=== PATIENT | male | born 1935 | race Caucasian/White ===

== ENCOUNTER 2017-02-05 09:27 | Emergency (ER) | payer OTHER ==
[~2017-02-05] VITALS: Ht 175.3 cm; Wt 74.9 kg
[2017-02-05 09:29] VITALS: TEMP 36.7; Ht 175.3 cm; Wt 74.9 kg
[2017-02-05] MEDS ORDERED: TRAMADOL HCL 50 MG TAB PO STA (09:53)
[2017-02-05] MEDS ORDERED: ACETAMINOPHEN 325 MG TAB PO STA (09:53)
[2017-02-05] MEDS ORDERED: IBUPROFEN 200 MG TAB PO STA (09:53)
--- NOTE | 2017-02-05 09:54 | EMERGENCY ROOM VISIT NOTE ---
History Report prepared by Jessica: Jennifer Fontaine Under the Supervision of: Dr. Duong Mcqueen M.D. First contact with patient: 09:35 Chief Complaint: SWELLING TO EXTREMITY Stated Complaint: SWELLING TO LEFT KNEE History of Present Illness The patient is an 81 year old white male with a past medical history of heart disease, atrial fibrillation, hypertension, Bhatti's cyst, and arthritis who presents to the ED with a cc of persistent left knee swelling beginning a week and a half ago. Positive left knee pain. Negative fever. He currently rates his discomfort as a 5/10 in severity. The patient states that last Tuesday he developed left knee pain and increased swelling. He states that last night he had difficulty sleeping, noting he had no relief of his symptoms with Tylenol or ice. The patient states that he is visiting from [place] for the next. Source of History: patient Onset: a week and a yogesh ago Position: knee (left) Symptom Intensity: 5/10 Quality: other (swelling) Timing: other (persistent) Associated Symptoms: No fevers Review of Systems See HPI for pertinent positives and negatives. A total of ten systems were reviewed and were otherwise negative. Past Medical & Surgical Medical Problems: (1) Arthritis (2) Atrial fibrillation (3) Heart disease (4) Hypertension Family History Hypertension Social History Smoking Status: Never Smoker Smokeless Tobacco Use: No Alcohol Use: none Marital Status: Housing Status: lives with significant other Occupation Status: retired Current/Historical Medications Scheduled Finasteride (Proscar), 5 MG PO DAILY Lisinopril (Zestril), 2.5 MG PO DAILY Tamsulosin Hcl (Flomax), 0.4 MG PO DAILY Scheduled PRN Tramadol (Ultram), 25 MG PO Q8H PRN for Pain Allergies Coded Allergies: No Known Allergies (Unverified , 02/05/17) Physical Exam Vital Signs Date Time Temp Pulse Resp B/P (MAP) Pulse Ox O2 Delivery O2 Flow Rate FiO2 02/05/17 11:45 62 16 114/64 94 Room Air 02/05/17 11:06 60 16 110/67 95 Room Air 02/05/17 09:29 36.7 66 18 135/70 95 Room Air Physical Exam GENERAL: Awake, alert, well-appearing, NAD HENT: Normocephalic, atraumatic. EYES: Normal conjunctiva. Sclera non-icteric. NECK: Supple. No nuchal rigidity. FROM. RESPIRATORY: CTAB, no rhonchi, wheezing, crackles CARDIAC: Irregularly, irregular, no MRG ABDOMEN: Soft, NTND, BS+ MSK: No chest wall TTP, Posterior knee swelling (history of Bakers cyst), some swelling to the knee, mild warmth, no redness, able to flex and extend the knee , NVI to SP/DP and tib nerves distally. NEURO: GCS 15, CN 2-12 intact, moves all 4s on command SKIN: No rash or jaundice noted. Medical Decision & Procedures ER Provider Diagnostic Interpretation: X-ray: Per my interpretation, radiologist review. L KNEE 4 OR MORE VIEWS CLINICAL HISTORY: Left knee pain and swelling. COMPARISON: None FINDINGS: Alignment of the left knee is anatomic. There is extensive chondrocalcinosis within the menisci and suprapatellar joint space. There is a probable moderate to large left knee joint effusion. Pre and infrapatellar soft tissue swelling is present. A round hypodensity posterior to the knee measuring approximately 9.5 cm in craniocaudal extent may reflect a popliteal cyst. There is moderate medial compartment joint space narrowing. No fracture or suspicious osseous lesion is present. IMPRESSION: 1. No acute fracture. 2. Moderate to large left knee joint effusion with pre and infrapatellar soft tissue swelling. 3. Suspected large popliteal cyst. 4. Moderate osteoarthritis of the left knee, most pronounced within the medial compartment. Extensive chondrocalcinosis. Electronically signed by: Sivakumar Llanes M.D. 02/05/2017 10:38 AM Dictated Date/Time: 02/05/2017 10:35 AM Medications Administered Medications (Trade) Dose Ordered Sig/Jake Route Start Time Stop Time Status Last Admin Dose Admin Ibuprofen (Advil Tab) 400 mg NOW STAT PO 02/05/17 09:53 02/05/17 09:55 DC 02/05/17 10:04 400 MG Acetaminophen (Tylenol Tab) 650 mg NOW STAT PO 02/05/17 09:53 02/05/17 09:55 DC 02/05/17 10:05 650 MG Tramadol HCl (Ultram Tab) 25 mg NOW STAT PO 02/05/17 09:53 02/05/17 09:55 DC 02/05/17 10:04 25 MG ED Course 0941: The patient was evaluated in room C9. A complete history and physical exam was performed. 1130: I reevaluated the patient and he is feeling better. I discussed the exam findings with him and I discussed the treatment plan. He verbalized complete understanding and agreement. He is ready to go home. Medical Decision Differential diagnosis: Etiologies such as fracture, dislocation, neurovascular compromise, compartment syndrome, soft tissue injury, as well as others were entertained. The patient is an 81 year old white male with a past medical history of heart disease, atrial fibrillation, hypertension, and arthritis who presents to the ED with a cc of persistent left knee swelling beginning a week and a half ago. The patient was seen and evaluated at the bedside. Patient is a very well- appearing and healthy looking 81-year-old male who is currently visiting his son from the [facility]. Patient states that he said some left knee swelling beginning approximately 10 days prior but was so bothersome last evening he was unable to sleep very well. Patient states that he spoke with the son who is an ER nurse stated just to be on the watch for a possible septic joint. Patient is afebrile vital signs are stable. Patient does have a prior history of atrial fibrillation which was noted in terms of an irregular rhythm on his bedside exam that he states has been controlled with just blood pressure control and states that he has elected under the advice of his test specialist not to use anticoagulant therapy. Patient's knee does show a little bit of swelling although he appears more full at the anserine bursa. Patient does have some posterior knee swelling but does have a history of Bhatti's cyst. Patient is neurovascularly intact distally in the compartment soft. Patient is able to ambulate flex and extend the knee. Patient did have a knee film was given medication for pain control. Patient's D film did show some supra and infra patellar swelling. Upon reexamination of the patient the patient was feeling much improved patient was ambulatory and flexing and extending the knee without much issue. Patient was told that it may be best to try conservative management which were increased should rest, ice, compression, elevation. She was also told to continue to take medicines [id number]. Patient was amenable to this plan of care. Patient is currently in the area over the next week and was told that if he develops any fever or if he notices any expanding redness over the area or if he is unable to flex or extend the knee he should consider returning for further evaluation and treatment. All cautions were answered. All instructions were given to patient and family. Patient was given strict follow-up, discharge, and return precautions. All questions were answered. Patient was deemed suitable for outpatient follow-up at this time. Patient agreed with the plan of care and was safely discharged home. Medication Reconcilliation Current Medication List: was personally reviewed by me Blood Pressure Screening Patient's blood pressure: Normal blood pressure Blood pressure disposition: Did not require urgent referral Impression Primary Impression: Knee pain, left Additional Impression: Knee effusion, left Scribe Attestation The scribe's documentation has been prepared under my direction and personally reviewed by me in its entirety. I confirm that the note above accurately reflects all work, treatment, procedures, and medical decision making performed by me. Departure Information Dispostion Home / Self-Care Prescriptions Tramadol (Ultram) 50 Mg Tab 25 MG PO Q8H Y for Pain, #10 TAB Prov: Duong Mcqueen M.D. 02/05/17 Referrals No Doctor, Assigned (PCP) Forms HOME CARE DOCUMENTATION FORM, IMPORTANT VISIT INFORMATION, WORK / SCHOOL INSTRUCTIONS Patient Instructions ED WAGNER, Juli [facility], Swelling Knee Pain Reduce Additional Instructions Please return to the emergency department if you have worsening or recurrent symptoms not amenable to at-home treatment. Please call for a follow-up appointment with her primary care physician. Please take your medications as prescribed. If you have other concerns and/or complaints please feel free to also call your primary care physician's office or return the ED for further evaluation, management, and treatment. You may take 200 mg Ibuprofen every 6 hours as needed for pain with food for no more than 2 consecutive days. You may take tylenol 650 mg every 6 hours as needed for pain. You may take motrin and tylenol separately or at the same time. Take your medications as prescribed. Continue to rest, ice, compression therapy and elevate the knee when you are off your feet. You have been examined and treated today on an emergency basis only. This is not a substitute for, or an effort to provide, complete comprehensive medical care. It is impossible to recognize and treat all injuries or illnesses in a single emergency department visit. It is therefore important that you follow up closely with [facility], your PCP, and/or your specialist(s). Call as soon as possible for an appointment. Thank you for your time and consideration. I look forward to speaking with you again soon. Please don't hesitate to call us if you have any questions. Problem Qualifiers Primary Impression: Knee pain, left Chronicity: acute Qualified Codes: M25.562 - Pain in left knee
[2017-02-05] MEDS ORDERED: TAMS0.4C38 PO (10:31)
[2017-02-05] MEDS ORDERED: LISI-729 PO (10:31)
[2017-02-05] MEDS ORDERED: FINA5TAB PO (10:31)
--- NOTE | 2017-02-05 10:39 | DIAGNOSTIC IMAGING REPORT ---
L KNEE 4 OR MORE VIEWS CLINICAL HISTORY: Left knee pain and swelling. COMPARISON: None FINDINGS: Alignment of the left knee is anatomic. There is extensive chondrocalcinosis within the menisci and suprapatellar joint space. There is a probable moderate to large left knee joint effusion. Pre and infrapatellar soft tissue swelling is present. A round hypodensity posterior to the knee measuring approximately 9.5 cm in craniocaudal extent may reflect a popliteal cyst. There is moderate medial compartment joint space narrowing. No fracture or suspicious osseous lesion is present. IMPRESSION: 1. No acute fracture. 2. Moderate to large left knee joint effusion with pre and infrapatellar soft tissue swelling. 3. Suspected large popliteal cyst. 4. Moderate osteoarthritis of the left knee, most pronounced within the medial compartment. Extensive chondrocalcinosis. Electronically signed by: Sivakumar Llanes M.D. 02/05/2017 10:38 AM Dictated Date/Time: 02/05/2017 10:35 AM
[2017-02-05] MEDS ORDERED: TRAM-10 PO (11:44)
[2017-02-05 11:45] VITALS: BP 114/64; PULSE 62; O2SAT 94
== END 2017-02-05 12:09 | disposition home or self-care (01) ==
LOC: C.EDB 09:30 → C.EDC 12:09
DX: M25.562 Pain in left knee (principal); M25.462 Effusion, left knee; M17.12 Unilateral primary osteoarthritis, left knee; I48.91 Unspecified atrial fibrillation; I10 Essential (primary) hypertension; M71.22 Synovial cyst of popliteal space [Baker], left knee; Z82.49 Family history of ischemic heart disease and other diseases of the circulatory system

== ENCOUNTER 2019-04-12 17:07 | Inpatient (IN) ==
[2019-04-12] MEDS ORDERED: METOPROLOL TARTRATE 1 MG/ML VIAL IV STA (17:30)
[2019-04-12 17:56] LABS: Basophils # (auto) 0.04 K/uL (0-0.2); Basophils % (auto) 0.6 %; Eosinophils # (auto) 0.18 K/uL (0-0.5); Eosinophils % (auto) 2.6 %; Hematocrit (blood only) 42.7 % (42-52); Hemoglobin 14.6 g/dL (14.0-18.0); Immature Granulocytes # (auto) 0.01 K/uL (0.00-0.02); Immature Granulocytes % (auto) 0.1 %; Lymphocytes # (auto) 0.88 K/uL (1.2-3.4); Lymphocytes % (auto) 12.8 %; Mean Corpuscular Hemoglobin 33.3 pg (25-34); Mean Corpuscular Hgb Conc 34.2 g/dL (32-36); Mean Corpuscular Volume 97.3 fL (80-100); Mean Platelet Volume 10.4 fL (7.4-10.4); Monocytes # (auto) 0.49 K/uL (0.11-0.59); Monocytes % (auto) 7.1 %; Neutrophils # (auto) 5.26 K/uL (1.4-6.5); Neutrophils % (auto) 76.8 %; Platelet Count 147 K/uL (130-400); RDW Coefficient of Variation 14.5 % (11.5-14.5); RDW Standard Deviation 51.3 fL (36.4-46.3); Red Blood Count 4.39 M/uL (4.7-6.1); White Blood Count 6.86 K/uL (4.8-10.8)
--- NOTE | 2019-04-12 17:59 | XRay Report ---
SINGLE VIEW CHEST CLINICAL HISTORY: Dyspnea. FINDINGS: 2 AP, portable, upright chest radiographs are obtained. No prior studies are available for comparison at the time of dictation. The examination is degraded by portable technique, apical lordot ic positioning, and patient rotation. The patient is status post midline sternotomy. The heart is enl arged noting atherosclerotic calcification of the thoracic aorta. There is pulmonary vascular congest ion. Scarring/atelectasis is present at the lung bases. Trace pleural effusions are suspected. No pne umothorax is seen. The skeletal structures are osteopenic. The bony thorax is grossly intact. IMPRESSION: 1. Cardiomegaly with mild pulmonary vascular congestion. 2. Trace pleural effusions. ACT 112: Negative or not required by law. Electronically signed by: Brady Reaves M.D. 04/12/2019 5:58 PM
[2019-04-12 18:10] LABS: INR 1.2 (0.9-1.1); Partial Thromboplastin Ratio 1.1; Partial Thromboplastin Time 29.4 Seconds (21.0-31.0); Prothrombin Time 11.8 Seconds (9.0-12.0)
[2019-04-12 18:14] LABS: Alanine Aminotransferase 89 U/L (12-78); Albumin Level 3.3 gm/dl (3.4-5.0); Aspartate Aminotransferase 59 U/L (15-37); BUN Creatinine Ratio 18.7 (10-20); Blood Urea Nitrogen 24 mg/dl (7-18); Calcium 8.7 mg/dl (8.5-10.1); Carbon Dioxide 24 mmol/L (21-32); Chloride 107 mmol/L (98-107); Creatinine Clr Calc Pharmacy 45.1 ml/min; Est GFR (African American) 59.6; Est GFR (Non-African American) 51.4; Glucose 144 mg/dl (70-99); Magnesium 1.9 mg/dl (1.8-2.4); Potassium 4.1 mmol/L (3.5-5.1); Sodium 137 mmol/L (136-145)
[2019-04-12 18:21] LABS: Albumin Globulin Ratio 1.1 (0.9-2); Alkaline Phosphatase 128 U/L (45-117); Bilirubin,Total 0.9 mg/dl (0.2-1); Globulin 3.1 gm/dl (2.5-4.0); NT Pro B Type Natriuretic Pept 6687 pg/ml (0-1800); Total Protein 6.4 gm/dl (6.4-8.2); Troponin I < 0.015 ng/ml (0-0.045)
[2019-04-12] MEDS ORDERED: FUROSEMIDE 40 MG/4 ML VIAL IV STA (18:40)
[2019-04-12] MEDS ORDERED: METOPROLOL TARTRATE 1 MG/ML VIAL IV PRN (19:06)
[2019-04-12] MEDS ORDERED: Heparin BOLUS **ED Use Only IV STA (19:18)
--- NOTE | 2019-04-12 19:18 | History & Physical Report ---
Date of Service April 12, 2019 Assessment & Plan (1) Acute diastolic CHF (congestive heart failure): Presented with 7 to 10 days history of increasing shortness of breath associated with weight gain and leg edema Chest x-ray showed cardiomegaly with CHF Received 20 of Lasix intravenously in the ER We will continue 40 mg of intravenous Lasix from tomorrow Echocardiogram to evaluate cardiac function Doubt any ACS but will cycle troponin Cardiology consult (2) A-fib: Possible history of atrial fibrillation not on anticoagulation Following aortic valve surgery he continued anticoagulation for a number of years and stopped it A. 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 Echo to evaluate cardiac function (4) Hypertension: Has been taking lisinopril 2.5 mg daily His primary care doctor has been trying to stop the medicine due to low blood pressure We will continue this medicine for now Started on Lopressor 25 mg twice daily GI prophylaxis We will give oral Protonix DVT prophylaxis Intravenous heparin for now CODE STATUS Full History of Present Illness Chief Complaint: Shortness of breath on exertion, leg swelling and more about 7 pounds weight gain for the last 10 days Primary Care Provider: NO PCP He is 83-year-old male with significant past medical history of hypertension, osteoarthritis and history of bicuspid aortic valve with aortic regurgitation status post bioprosthetic aortic valve replacement in 2005 has been complaining of exertional shortness of breath for the last 7 to 10 days, associated with weight gain about 7 to 8 pounds and swelling of the legs. He denies any chest pain and/or palpitation associated with it. No abdominal pain nausea and/or vomit. His legs get weaker with exertion and shortness of breath. He denies any dizziness and/or numbness and tingling involving any of the extremities. No fever and/or chills. No abdominal pain, nausea and/or vomiting. Allergies Allergy/AdvReac Type Severity Reaction Status Date / Time Iodinated Contrast Media Allergy Severe Difficulty Unverified 04/12/19 18:34 Breathing Home Medications Home Medications Medication Instructions Recorded Confirmed Type amoxicillin 0 mg PO UD 04/12/19 04/12/19 History aspirin 81 mg PO DAILY 04/12/19 04/12/19 History cholecalciferol (vitamin D3) 400 unit PO DAILY 04/12/19 04/12/19 History [Vitamin D3] lisinopril 2.5 mg PO DAILY 04/12/19 04/12/19 History tamsulosin 0.4 mg PO HS 04/12/19 04/12/19 History Past Med/Surg History Social History (Updated 04/12/19 @ 19:16 by Ann Marie Larson MD) Hearing Ability: Normal marital status: Current Living Situation: Spouse Feels Safe at Home: Yes Smoking Status: Former smoker Review of Systems Review of Systems: All systems reviewed & are unremarkable except as noted in HPI & below Physical Exam Physical Exam: Lying in bed without any symptoms Constitutional: well developed and well nourished; no acute distress and not ill appearing Eyes: PERRL, conjunctivae normal, anicteric sclerae ENMT: external ear and nose normal, oropharynx normal Neck: trachea midline, no thyromegaly Respiratory: normal respiratory effort Auscultation: + diminished lung sounds and + crackles (Minimal crackles at the bases) Cardiovascular: Rate/Rhythm: + abnormal rate and + abnormal rhythm Heart Sounds: + murmur Extremities: + edema (1+ bilateral pedal edema) Gastrointestinal (Abdomen): Inspection/Auscultation: abdomen normal to inspection Percussion/Palpation: abdomen soft; abdomen nontender Musculoskeletal: No acute arthritis in any joints Neurologic: moves all extremities and + focal motor deficit Lymphatic: no cervical or axillary lymphadenopathy Results & Data Vital Signs (Past 12 Hours) Vital Signs Temp Pulse Resp BP Pulse Ox 04/12/19 18:31 88 27 H 148/74 H 94 04/12/19 18:30 105 H 23 88 L 04/12/19 18:01 99 H 23 90 04/12/19 18:00 110 H 23 118/90 04/12/19 17:47 107 H 22 93 04/12/19 17:46 95 H 23 147/97 H 89 L 04/12/19 17:34 119 H 26 H 91 04/12/19 17:30 110 H 26 H 132/99 93 04/12/19 17:29 95 04/12/19 17:17 36.5 C 112 H 22 152/92 H 93 Laboratory Results Short CBC 04/12/19 Range/Units 17:45 WBC 6.86 (4.8-10.8) K/uL Hgb 14.6 (14.0-18.0) g/dL Hct 42.7 (42-52) % Plt Count 147 (130-400) K/uL BMP 04/12/19 17:45 Sodium 137 Potassium 4.1 Chloride 107 Carbon Dioxide 24 BUN 24 H Creatinine 1.28 Glucose 144 H Calcium 8.7 Cardiac Enzymes 04/12/19 Range/Units 17:45 Troponin I < 0.015 (0-0.045) ng/ml Liver Function 04/12/19 Range/Units 17:45 Total Bilirubin 0.9 (0.2-1) mg/dl AST 59 H (15-37) U/L ALT 89 H (12-78) U/L Alkaline Phosphatase 128 H (45-117) U/L Albumin 3.3 L (3.4-5.0) gm/dl Medications Administered Current Inpatient Medications Heparin Sodium/Dextrose (Heparin Sodium/Dextrose) 25,000 units in 500 mls @ 27 mls/hr IV .[id number] [facility]; Protocol Stop: 05/12/19 18:44 Metoprolol Tartrate (Lopressor) 25 mg PO BID RHINA Stop: 05/12/19 20:59 Metoprolol Tartrate (Lopressor) 2.5 mg IV Q6 PRN PRN Reason: Tachycardia Stop: 05/13/19 00:00
[2019-04-12] MEDS: HEPARIN SODIUM/DEXTROSE 25,000 UNITS/500 ML BAG IV SCH (19:40)
[2019-04-12] MEDS: METOPROLOL TARTRATE 25 MG TAB PO SCH (22:22)
[2019-04-12] MEDS: TAMSULOSIN HCL 0.4 MG CAP PO SCH (22:22)
--- NOTE | 2019-04-13 00:01 | Emergency Department Note ---
Entered by Cathi Dudley acting as a scribe for Rafy Dave MD ED Provider Note CHIEF COMPLAINT: SOB HISTORY OF PRESENT ILLNESS: The patient is a 83 year old male who presents to the Emergency Room with complaints of constant SOB beginning 2 week ago. He reports exertion exacerbates the symptoms. The patient complains of recent weight gain, stating that he gained 8 pounds over the past 2 weeks. He complains of lower extremity swelling, and coughing up mucous. The patient notes that he's had palpitations over the past few days. Pt denies LOC, headache, fevers, chills, diaphoresis, visual changes, neck pain, chest pain, nausea, vomiting, abdominal pain, back pain, melena, hematochezia, urinary symptoms, numbness, weakness, lymphadenopathy, rash, or other complaints. He notes that he takes Aspirin daily, but he denies the use of any blood thinners. REVIEW OF SYSTEMS: See HPI for pertinent positives and negatives. A total of ten systems were reviewed and were otherwise negative. PMHx/PSHx: A-fib, HTN, heart disease, and arthritis SOCIAL HISTORY: Patient lives at home. PHYSICAL EXAM: GENERAL: Awake, alert, well-appearing, in no distress HENT: Normocephalic, atraumatic. Oropharynx unremarkable. EYES: PERRL. Normal conjunctiva. Sclera non-icteric. NECK: Inspection normal. Non-tender. Supple. No nuchal rigidity. FROM. No masses. RESPIRATORY: Clear to auscultation. No wheezes. No rales. Normal respiratory effort. CARDIAC: Tachycardic rate. Irregular rhythm. No murmurs. No rubs. Extremities warm and well perfused. Pulses equal. No JVD. GI: Soft, non-distended. No tenderness to palpation. No rebound or guarding. No masses. RECTAL: Deferred. MUSCULOSKELETAL: Atraumatic. Chest examination reveals no tenderness. The back is symmetrical on inspection without obvious abnormality. There is no CVA tenderness to palpation. No joint edema. LOWER EXTREMITIES: Calves are equal size bilaterally and non-tender. Trace bilateral lower extremity edema. No discoloration. NEURO: Normal sensorium. No sensory or motor deficits noted. SKIN: No rash or jaundice noted. EMERGENCY DEPARTMENT COURSE: 1723: Past medical records reviewed. The patient was evaluated in room B04B, and a complete history and physical examination were performed. 180: I spoke with the telehealth case manager about the patients case. 182: I spoke with Dr. Larson, [facility] hospitalist, about the patients case. He will further evaluate the patient. CRITICAL CARE: I have personally spent 35 minutes of critical care time in the direct management of this patient. This includes bedside care, interpretation of diagnostic studies, and testing, discussion with consultants, patient, and family members, and other required patient management activities. This 35 minutes is in excess of all separately billable procedures. MEDICAL DECISION MAKING: B4 Triage Nursing notes reviewed and agree them. Additional history obtained from the family. The patient's history was concerning for shortness of breath. Differential diagnosis: Etiologies such as pneumonia, COPD, reactive airway disease, CHF, cardiac ischemia, pulmonary embolism, pneumothorax, musculoskeletal, infections, gastrointestinal, as well as others were entertained. Physical examination: As above. The patient was in rapid atrial fibrillation. ER treatment provided: IV Lopressor IV Lasix IV heparin drip Diagnostic interpretation by me: The electrocardiogram was consistent with A. fib and RVR. The labs revealed an unremarkable CBC and chemistry panel. The patient has subtle elevation of LFTs but BNP is markedly elevated concerning for CHF. Troponin negative. Imaging studies: Chest x-ray concerning for mild CHF. Cardiomegaly. The patient has recurrent atrial fibrillation with rapid ventricular response. He also has weight gain, shortness of breath and an elevated BNP consistent with acute CHF. He has no prior history of CHF diagnosis. Further management will be necessary in the hospital. Consultation: A consultation was placed with the hospitalist. The case was discussed and diagnostics were reviewed. Given the duration of symptoms there was concern that the A. fib has been present for an extended period and IV heparin was discussed and recommended. The patient was started on IV heparin in the ER. The patient was evaluated in the ER for further treatment. IMPRESSION: Atrial fibrillation with RVR, acute CHF, hypoxia, SOB PLAN: Evaluation by hospitalist The scribe's documentation has been prepared under my direction and personally reviewed by me in its entirety. I confirm that the note above accurately reflects all work, treatment, procedures, and medical decision making performed by me. 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 Beliefs That Will Affect Care: None marital status: Current Living Situation: Spouse Other Information That Helps Us Care for You: No Feels Safe at Home: Yes Safety Concerns: Feels Safe At This Time Smoking Status: Never smoker Hx Alcohol Use: Yes Alcohol type: beer and wine Hx Substance Use: No Results & Data Vital Signs Vital Signs - 24 hr 04/12/19 17:17 04/12/19 17:29 04/12/19 17:30 Temperature 36.5 C Temperature Source Oral Pulse Rate 112 H 110 H Pulse Rate from SpO2 Sensor 84 Respiratory Rate 22 26 H Respiratory Effort / Characteristics Non-Labored Spontaneous Respiratory Depth Normal Respiratory Pattern Regular Blood Pressure 152/92 H 132/99 Blood Pressure Mean 112 118 Blood Pressure Position Sitting Pulse Oximetry 93 95 93 Oxygen Delivery Method Room Air Room Air Sepsis Recent Fever Within 48 Hours No Sepsis New/Unexplained Change in Mental Status No Sepsis Action Taken by Nursing No Action Required 04/12/19 17:34 04/12/19 17:46 04/12/19 17:47 Temperature Temperature Source Pulse Rate 119 H 95 H 107 H Pulse Rate from SpO2 Sensor 93 H 66 101 H Respiratory Rate 26 H 23 22 Respiratory Effort / Characteristics Respiratory Depth Respiratory Pattern Blood Pressure 147/97 H Blood Pressure Mean 116 Blood Pressure Position Pulse Oximetry 91 89 L 93 Oxygen Delivery Method Room Air Sepsis Recent Fever Within 48 Hours Sepsis New/Unexplained Change in Mental Status Sepsis Action Taken by Nursing 04/12/19 17:52 04/12/19 18:00 04/12/19 18:01 Temperature Temperature Source Pulse Rate 110 H 99 H Pulse Rate from SpO2 Sensor 82 Respiratory Rate 23 23 Respiratory Effort / Characteristics Non-Labored Spontaneous Respiratory Depth Normal Respiratory Pattern Regular Blood Pressure 118/90 Blood Pressure Mean 93 Blood Pressure Position Pulse Oximetry 90 Oxygen Delivery Method Room Air Sepsis Recent Fever Within 48 Hours Sepsis New/Unexplained Change in Mental Status Sepsis Action Taken by Nursing 04/12/19 18:30 04/12/19 18:31 Temperature Temperature Source Pulse Rate 105 H 88 Pulse Rate from SpO2 Sensor 100 H 83 Respiratory Rate 23 27 H Respiratory Effort / Characteristics Respiratory Depth Respiratory Pattern Blood Pressure 148/74 H Blood Pressure Mean 93 Blood Pressure Position Pulse Oximetry 88 L 94 Oxygen Delivery Method Sepsis Recent Fever Within 48 Hours Sepsis New/Unexplained Change in Mental Status Sepsis Action Taken by Correction Medications Current Medication List: was personally reviewed by me Laboratory Data Attestation: I reviewed the patient's lab results. Result diagrams: 04/12/19 17:45 04/12/19 17:45 Lab Results 04/12/19 04/12/19 04/12/19 Range/Units 17:45 17:45 17:45 WBC 6.86 (4.8-10.8) K/uL RBC 4.39 L (4.7-6.1) M/uL Hgb 14.6 (14.0-18.0) g/dL Hct 42.7 (42-52) % MCV 97.3 (80-100) fL MCH 33.3 (25-34) pg MCHC 34.2 (32-36) g/dL RDW Std Deviation 51.3 H (36.4-46.3) fL RDW Coeff of Riley 14.5 (11.5-14.5) % Plt Count 147 (130-400) K/uL MPV 10.4 (7.4-10.4) fL Immature Gran % (Auto) 0.1 % Neut % (Auto) 76.8 % Lymph % (Auto) 12.8 % [place] % (Auto) 7.1 % Eos % (Auto) 2.6 % Baso % (Auto) 0.6 % Immature Gran # (Auto) 0.01 (0.00-0.02) K/uL Neut # (Auto) 5.26 (1.4-6.5) K/uL Lymph # (Auto) 0.88 L (1.2-3.4) K/uL [place] # (Auto) 0.49 (0.11-0.59) K/uL Eos # (Auto) 0.18 (0-0.5) K/uL Baso # (Auto) 0.04 (0-0.2) K/uL PT 11.8 (9.0-12.0) Seconds INR 1.2 H (0.9-1.1) APTT 29.4 (21.0-31.0) Seconds PTT Ratio 1.1 Sodium 137 (136-145) mmol/L Potassium 4.1 (3.5-5.1) mmol/L Chloride 107 (98-107) mmol/L Carbon Dioxide 24 (21-32) mmol/L Anion Gap 6.0 (3-11) BUN 24 H (7-18) mg/dl Creatinine 1.28 (0.6-1.4) mg/dl Est Cr Clr Drug Dosing 45.1 ml/min Est GFR ( Amer) 59.6 Est GFR (Non-Af Amer) 51.4 BUN/Creatinine Ratio 18.7 (10-20) Glucose 144 H (70-99) mg/dl Calcium 8.7 (8.5-10.1) mg/dl Magnesium 1.9 (1.8-2.4) mg/dl Total Bilirubin 0.9 (0.2-1) mg/dl AST 59 H (15-37) U/L ALT 89 H (12-78) U/L Alkaline Phosphatase 128 H (45-117) U/L Troponin I < 0.015 (0-0.045) ng/ml NT-Pro-B Natriuret Pep 6687 H (0-1800) pg/ml Total Protein 6.4 (6.4-8.2) gm/dl Albumin 3.3 L (3.4-5.0) gm/dl Globulin 3.1 (2.5-4.0) gm/dl Albumin/Globulin Ratio 1.1 (0.9-2) Administered Medications Heparin Sodium/Dextrose (Heparin Sodium/Dextrose) 25,000 units in 500 mls @ 27 mls/hr IV .[id number] [facility]; Protocol Stop: 05/12/19 18:44 Last Admin: 04/12/19 19:40 Dose: 1,350 units/hr, 27 mls/hr Documented by: [id number] Cosigned by: [id number] Metoprolol Tartrate (Lopressor) 25 mg PO BID RHINA Stop: 05/12/19 20:59 Last Admin: 04/12/19 22:22 Dose: 25 mg Documented by: [id number] Tamsulosin HCl (Flomax) 0.4 mg PO HS RHINA Stop: 05/12/19 21:04 Last Admin: 04/12/19 22:22 Dose: 0.4 mg Documented by: [id number] Discontinued Medications Furosemide (Lasix) 20 mg IV NOW STA Stop: 04/12/19 18:41 Last Admin: 04/12/19 19:08 Dose: 20 mg Documented by: [id number] Heparin Sodium (Porcine) (Heparin Iv Bolus) 6,000 units IV NOW STA Stop: 04/12/19 19:19 Last Admin: 04/12/19 19:43 Dose: 5,000 units Documented by: [id number] Cosigned by: [id number] Heparin Sodium/Dextrose () 1 ea N/A NOW STA; Protocol Stop: 04/12/19 18:41 Last Admin: 04/12/19 19:41 Dose: 1 ea Documented by: [id number] Metoprolol Tartrate (Lopressor) 2.5 mg IV NOW STA Stop: 04/12/19 17:31 Last Admin: 04/12/19 17:54 Dose: 2.5 mg Documented by: [id number] Imaging Data Radiologist's Impression: Radiology results as stated below per my review and the radiologist's interpretation: SINGLE VIEW CHEST CLINICAL HISTORY: Dyspnea. FINDINGS: 2 AP, portable, upright chest radiographs are obtained. No prior studies are available for comparison at the time of dictation. The examination is degraded by portable technique, apical lordotic positioning, and patient rotation. The patient is status post midline sternotomy. The heart is enlarged noting atherosclerotic calcification of the thoracic aorta. There is pulmonary vascular congestion. Scarring/atelectasis is present at the lung bases. Trace pleural effusions are suspected. No pneumothorax is seen. The skeletal structures are osteopenic. The bony thorax is grossly intact. IMPRESSION: 1. Cardiomegaly with mild pulmonary vascular congestion. 2. Trace pleural effusions. ACT 112: Negative or not required by law. Electronically signed by: Brady Reaves M.D. 04/12/2019 5:58 PM ECG Data Attestation: I personally reviewed and interpreted this ECG as follows: Indication: + SOB/dyspnea Rate (beats per minute): 120 Rhythm: atrial fibrillation (with RVR) ECG [place]: + Right axis deviation ECG ST segments: + Nonspecific ST abnormalities ECG Findings: + PVCs and + Other (normal QRS) Blood Pressure Blood Pressure Findings: Elevated blood pressure Blood Pressure Disposition: further management by hospitalist Discharge Plan Visit Data *Final* Discharge Date/Time: 04/12/19 20:28 Chief Complaint: Shortness of Breath/Dyspnea Stated Complaint: SOB, WEIGHT GAIN ED Provider: Rafy Dave Discharge Problem: Atrial fibrillation with RVR, Acute CHF, Hypoxia, SOB (shortness of breath) Patient Disposition: Admitted As Inpatient Discharge Instructions Interventions: ED Discharge Assessment Last Done: 04/12/19 20:28 Discharge Problem: Acute CHF Qualifiers: Heart failure type: unspecified Qualified Code(s): I50.9 - Heart failure, unspecified The scribe's documentation has been prepared under my direction and personally reviewed by me in its entirety. I confirm that the note above accurately reflects all work, treatment, procedures, and medical decision making performed by me.
[2019-04-13 01:12] LABS: Appearance Urine Clear (Clear); Bacteria Urine Automated Negative (Negative); Bilirubin Urine Negative (Negative); Blood Urine 1+ (Negative); Color Urine Yellow; Epithelial Cell Urine Auto 0-5 /lpf (0-5); Glucose Urine UA Negative (Negative); Ketones Urine Negative (Negative); Leukocyte Esterase Urine Negative (Negative); Nitrite Urine Negative (Negative); Protein Urine Negative (Negative); RBC Urine Automated 0-4 /hpf (0-4); Specific Gravity Urine 1.008 (1.000-1.030); Urobilinogen Urine Negative (Negative); WBC Urine Automated 0 /hpf (0-5)
[2019-04-13 01:50] LABS: Basophils # (auto) 0.02 K/uL (0-0.2); Basophils % (auto) 0.3 %; Eosinophils # (auto) 0.14 K/uL (0-0.5); Eosinophils % (auto) 2.3 %; Hematocrit (blood only) 38.7 % (42-52); Hemoglobin 13.2 g/dL (14.0-18.0); Immature Granulocytes # (auto) 0.01 K/uL (0.00-0.02); Immature Granulocytes % (auto) 0.2 %; Lymphocytes # (auto) 1.01 K/uL (1.2-3.4); Lymphocytes % (auto) 16.5 %; Mean Corpuscular Hemoglobin 32.7 pg (25-34); Mean Corpuscular Hgb Conc 34.1 g/dL (32-36); Mean Corpuscular Volume 95.8 fL (80-100); Mean Platelet Volume 10.4 fL (7.4-10.4); Monocytes # (auto) 0.51 K/uL (0.11-0.59); Monocytes % (auto) 8.3 %; Neutrophils # (auto) 4.44 K/uL (1.4-6.5); Neutrophils % (auto) 72.4 %; Platelet Count 129 K/uL (130-400); RDW Coefficient of Variation 14.4 % (11.5-14.5); RDW Standard Deviation 50.5 fL (36.4-46.3); Red Blood Count 4.04 M/uL (4.7-6.1); White Blood Count 6.13 K/uL (4.8-10.8)
[2019-04-13 02:08] LABS: Albumin Level 2.8 gm/dl (3.4-5.0); BUN Creatinine Ratio 22.7 (10-20); Calcium 8.3 mg/dl (8.5-10.1); Creatinine Clr Calc Pharmacy 51.3 ml/min; Est GFR (African American) 72.4; Est GFR (Non-African American) 62.4; Magnesium 1.8 mg/dl (1.8-2.4); Potassium 3.9 mmol/L (3.5-5.1)
[2019-04-13 02:13] LABS: Albumin Globulin Ratio 1.1 (0.9-2); Bilirubin,Total 0.7 mg/dl (0.2-1); Globulin 2.6 gm/dl (2.5-4.0); Partial Thromboplastin Ratio 3.1; Total Protein 5.4 gm/dl (6.4-8.2); Troponin I 0.018 ng/ml (0-0.045)
[2019-04-13 02:38] LABS: Partial Thromboplastin Time 82.8 Seconds (21.0-31.0)
[2019-04-13] MEDS: CHOLECALCIFEROL (VITAMIN D) 400 UNITS TABLET PO SCH (08:19)
[2019-04-13] MEDS: ASPIRIN 81 MG ECTAB PO SCH (08:19)
[2019-04-13] MEDS: METOPROLOL TARTRATE 25 MG TAB PO SCH ×2 (08:19→21:38)
[2019-04-13] MEDS ORDERED: FUROSEMIDE 40 MG in SYRINGE 0 ML IV SCH (09:00)
[2019-04-13] MEDS ORDERED: FUROSEMIDE 40 MG/4 ML VIAL IV SCH (09:00)
[2019-04-13 09:30] LABS: Partial Thromboplastin Ratio 1.6; Partial Thromboplastin Time 44.1 Seconds (21.0-31.0)
[2019-04-13] MEDS ORDERED: HEPARIN IV BOLUS 3,000 UNITS in SYRINGE 0 ML IV ONE (09:37)
--- NOTE | 2019-04-13 12:53 | Electrocardiogram Report ---
Test Reason : Blood Pressure : / mmHG Vent. Rate : 120 BPM Atrial Rate : 100 BPM P-R Int : 000 ms QRS Dur : 096 ms QT Int : 300 ms P-R-T Axes : 000 092 -38 degrees QTc Int : 424 ms Atrial fibrillation with rapid ventricular response with premature ventricular or aberrantly conducte d complexes Rightward axis Abnormal ECG No previous ECGs available Confirmed by Chet Garcia ([id number]) on 04/13/2019 12:53:32 PM Referred By: REFERRED SELF Confirmed By:Deangelo Garcia
[2019-04-13 16:04] LABS: Partial Thromboplastin Ratio 2.8
[2019-04-13] MEDS: HEPARIN SODIUM/DEXTROSE 25,000 UNITS/500 ML BAG IV SCH (16:08)
[2019-04-13 16:10] LABS: Partial Thromboplastin Time 75.8 Seconds (21.0-31.0)
--- NOTE | 2019-04-13 16:34 | Cardiology Consultation ---
Date of Consultation April 13, 2019 Assessment & Plan (1) Atrial fibrillation with RVR: The pathophysiology and treatment options for which were discussed with the patient and his at great length today. He is now rate control with initiation of metoprolol and this will be continued. He was counseled on the fact that this is likely now permanent atrial fibrillation given his severe left atrial enlargement and severe mitral regurgitation. He was counseled as to the risk of a cardioembolic event and the need for systemic anticoagulation. However, the patient is not certain that he would like to be on anticoagulation at this point and will make a decision. Given his age and history of valvular disease I believe Coumadin will be a preferred agent over DOAC for him, this too was explained at great lengths. He states he is very apprehensive about dealing with a new master ship after his been seen by his for several years in [place]. I have offered to follow him as an outpatient. He was also counseled that he is able to seek second opinion elsewhere as well. His records will be made available for his primary master ship upon discharge. (2) Acute diastolic CHF (congestive heart failure): Likely secondary to atrial fibrillation We will continue with IV diuresis and I will change his Lasix to 40 mg twice daily. His volume status will be followed closely clinically and will likely require oral diuretic on discharge. (3) Mitral regurgitation: The patient states emphatically that he has had an aortic valve replacement however, on review of echocardiogram his valve visually does not appear to be a bioprosthetic nor mechanical valve. I cannot rule out a homograft but direct visualization does appear to be a [place] aortic valve. He does have a mitral annuloplasty ring in place suggest history of mitral valve repair. There is severe mitral regurgitation present and pulmonary hypertension (4) Pulmonary hypertension: Likely due to mitral regurgitation. History of Present Illness Reason for Consultation: Atrial fibrillation and acute heart failure Requesting Physician: Dr. Milner Attending Physician: Jose A Milner MD History of Present Illness It was my pleasure to see Mr. Patel in consultation today April 13, 2019. He is a very pleasant 83-year-old gentleman who resides in [place] and is just now thinking about moving to [place] to be closer to family. He presented to [facility] emergency department on 04/12/2019 at the urging of his primary care physician in [place] after he called with complaints of unexplained weight gain and dyspnea. Patient states that for several weeks now he is noticed an unexplained weight gain of approximately 8 pounds. This correlated with increa sed dyspnea with exertion and fatigue. He denies any episodes of chest pain, palpitations, lightheadedness, dizziness or syncope. Upon presentation he was found to be in volume overload as well as in atrial fibrillation. He was started on IV heparin and given a dose of IV Lasix along with p.o. metoprolol and admitted to telemetry. He states he is feeling well at rest now without complaint. The patient states emphatically that he has had an aortic valve replacement in the past along with aortic root repair due to a bicuspid aortic valve. He does follow with a master ship in [place] and he states his last evaluation was in October 2018 at that time he was told that his mitral regurgitation was stable but he does not remember any other findings or recommendations from that visit. He states he does have a history of postoperative atrial fibrillation after his open heart surgery 2005 and was placed on Coumadin for approximately 18 months but it was then discontinued as per his desire as he did not enjoy the experience of being on Coumadin. He denies any significant falls and states that while he does have arthritis of his knees he is steady on his feet. Allergies Allergy/AdvReac Type Severity Reaction Status Date / Time Iodinated Contrast Media Allergy Severe Difficulty Unverified 04/12/19 18:34 Breathing Home Medications Home Medications Medication Instructions Recorded Confirmed Type amoxicillin 0 mg PO UD 04/12/19 04/12/19 History aspirin 81 mg PO DAILY 04/12/19 04/12/19 History cholecalciferol (vitamin D3) 400 unit PO DAILY 04/12/19 04/12/19 History [Vitamin D3] lisinopril 2.5 mg PO DAILY 04/12/19 04/12/19 History tamsulosin 0.4 mg PO HS 04/12/19 04/12/19 History Patient History Medical History A-fib Arthritis (Chronic) Heart disease (Chronic) Hypertension (Chronic) Social History Preferred Language: Icelandic Communication Ability: Effective Hearing Ability: Normal 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 No acute distress. HEENT: Normocephalic, atraumatic. Pupils equal, round and reactive to light and accommodation. Extraocular muscles are intact. Anicteric sclera. Moist mucous membranes. Neck: No JVD. No bruit. Cardiovascular: Irregularly irregular 3/6 holosystolic ejection murmur, left sternal border, mid-clavicular line with radiation to the axilla. No rubs. Pulmonary: Poor air movement in the bilateral bases with scattered rhonchi Abdomen: Bowel sounds x 4, soft. No rebound, guarding or tenderness. No organomegaly. Extremities: No clubbing, cyanosis or edema. +2 pedal pulses bilaterally. Skin: Warm and dry. Results & Data Vital Signs (Past 12 Hours) Vital Signs Temp Pulse Resp BP Pulse Ox 04/13/19 15:16 36.4 C L 59 L 19 123/83 97 04/13/19 11:18 36.3 C L 75 19 116/83 96 04/13/19 07:52 36.4 C L 124 H 19 125/69 96 04/13/19 04:35 36.2 C L 70 18 129/71 99 Laboratory Results Laboratory Results - last 24 hr 04/12/19 04/12/19 04/12/19 17:45 17:45 17:45 WBC 6.86 RBC 4.39 L Hgb 14.6 Hct 42.7 MCV 97.3 MCH 33.3 MCHC 34.2 RDW Std Deviation 51.3 H RDW Coeff of [place] 14.5 Plt Count 147 MPV 10.4 Immature Gran % (Auto) 0.1 Neut % (Auto) 76.8 Lymph % (Auto) 12.8 [place] % (Auto) 7.1 Eos % (Auto) 2.6 Baso % (Auto) 0.6 Immature Gran # (Auto) 0.01 Neut # (Auto) 5.26 Lymph # (Auto) 0.88 L [place] # (Auto) 0.49 Eos # (Auto) 0.18 Baso # (Auto) 0.04 PT 11.8 INR 1.2 H APTT 29.4 PTT Ratio 1.1 Sodium 137 Potassium 4.1 Chloride 107 Carbon Dioxide 24 Anion Gap 6.0 BUN 24 H Creatinine 1.28 Est Cr Clr Drug Dosing 45.1 Est GFR ( Amer) 59.6 Est GFR (Non-Af Amer) 51.4 BUN/Creatinine Ratio 18.7 Glucose 144 H Calcium 8.7 Magnesium 1.9 Total Bilirubin 0.9 AST 59 H ALT 89 H Alkaline Phosphatase 128 H Troponin I < 0.015 NT-Pro-B Natriuret Pep 6687 H Total Protein 6.4 Albumin 3.3 L Globulin 3.1 Albumin/Globulin Ratio 1.1 Urine Color Urine Appearance Urine pH Ur Specific [place] Urine Protein Urine Glucose (UA) Urine Ketones Urine Blood Urine Nitrite Urine Bilirubin Urine Urobilinogen Ur Leukocyte Esterase Urine WBC (Auto) Urine RBC (Auto) U Hyaline Cast (Auto) U Epithel Cells (Auto) Urine Bacteria (Auto) 04/12/19 04/13/19 04/13/19 23:28 01:00 01:34 WBC RBC Hgb Hct MCV MCH MCHC RDW Std Deviation RDW Coeff of [place] Plt Count MPV Immature Gran % (Auto) Neut % (Auto) Lymph % (Auto) [place] % (Auto) Eos % (Auto) Baso % (Auto) Immature Gran # (Auto) Neut # (Auto) Lymph # (Auto) [place] # (Auto) Eos # (Auto) Baso # (Auto) PT INR APTT PTT Ratio Sodium 139 Potassium 3.9 Chloride 111 H Carbon Dioxide 23 Anion Gap 5.0 BUN 25 H Creatinine 1.09 Est Cr Clr Drug Dosing 51.3 Est GFR ( Amer) 72.4 Est GFR (Non-Af Amer) 62.4 BUN/Creatinine Ratio 22.7 H Glucose 99 Calcium 8.3 L Magnesium 1.8 Total Bilirubin 0.7 AST 35 ALT 73 Alkaline Phosphatase 95 Troponin I < 0.015 0.018 NT-Pro-B Natriuret Pep Total Protein 5.4 L Albumin 2.8 L Globulin 2.6 Albumin/Globulin Ratio 1.1 Urine Color Yellow Urine Appearance Clear Urine pH 5.0 Ur Specific [place] 1.008 Urine Protein Negative Urine Glucose (UA) Negative Urine Ketones Negative Urine Blood 1+ H Urine Nitrite Negative Urine Bilirubin Negative Urine Urobilinogen Negative Ur Leukocyte Esterase Negative Urine WBC (Auto) 0 Urine RBC (Auto) 0-4 U Hyaline Cast (Auto) 1-5 U Epithel Cells (Auto) 0-5 Urine Bacteria (Auto) Negative 04/13/19 04/13/19 04/13/19 01:34 01:34 08:59 WBC 6.13 RBC 4.04 L Hgb 13.2 L Hct 38.7 L MCV 95.8 MCH 32.7 MCHC 34.1 RDW Std Deviation 50.5 H RDW Coeff of [place] 14.4 Plt Count 129 L MPV 10.4 Immature Gran % (Auto) 0.2 Neut % (Auto) 72.4 Lymph % (Auto) 16.5 [place] % (Auto) 8.3 Eos % (Auto) 2.3 Baso % (Auto) 0.3 Immature Gran # (Auto) 0.01 Neut # (Auto) 4.44 Lymph # (Auto) 1.01 L [place] # (Auto) 0.51 Eos # (Auto) 0.14 Baso # (Auto) 0.02 PT INR APTT 82.8 H* 44.1 H PTT Ratio 3.1 1.6 Sodium Potassium Chloride Carbon Dioxide Anion Gap BUN Creatinine Est Cr Clr Drug Dosing Est GFR ( Amer) Est GFR (Non-Af Amer) BUN/Creatinine Ratio Glucose Calcium Magnesium Total Bilirubin AST ALT Alkaline Phosphatase Troponin I NT-Pro-B Natriuret Pep Total Protein Albumin Globulin Albumin/Globulin Ratio Urine Color Urine Appearance Urine pH Ur Specific [place] Urine Protein Urine Glucose (UA) Urine Ketones Urine Blood Urine Nitrite Urine Bilirubin Urine Urobilinogen Ur Leukocyte Esterase Urine WBC (Auto) Urine RBC (Auto) U Hyaline Cast (Auto) U Epithel Cells (Auto) Urine Bacteria (Auto) 04/13/19 15:28 WBC RBC Hgb Hct MCV MCH MCHC RDW Std Deviation RDW Coeff of [place] Plt Count MPV Immature Gran % (Auto) Neut % (Auto) Lymph % (Auto) [place] % (Auto) Eos % (Auto) Baso % (Auto) Immature Gran # (Auto) Neut # (Auto) Lymph # (Auto) [place] # (Auto) Eos # (Auto) Baso # (Auto) PT INR APTT 75.8 H* PTT Ratio 2.8 Sodium Potassium Chloride Carbon Dioxide Anion Gap BUN Creatinine Est Cr Clr Drug Dosing Est GFR ( Amer) Est GFR (Non-Af Amer) BUN/Creatinine Ratio Glucose Calcium Magnesium Total Bilirubin AST ALT Alkaline Phosphatase Troponin I NT-Pro-B Natriuret Pep Total Protein Albumin Globulin Albumin/Globulin Ratio Urine Color Urine Appearance Urine pH Ur Specific [place] Urine Protein Urine Glucose (UA) Urine Ketones Urine Blood Urine Nitrite Urine Bilirubin Urine Urobilinogen Ur Leukocyte Esterase Urine WBC (Auto) Urine RBC (Auto) U Hyaline Cast (Auto) U Epithel Cells (Auto) Urine Bacteria (Auto)
[2019-04-13] MEDS: WARFARIN SOD 5 MG TAB PO SCH (17:37)
[2019-04-13] MEDS: POTASSIUM CHLORIDE 20 MEQ TABCR PO SCH (17:37)
[2019-04-13] MEDS: FUROSEMIDE 40 MG in SYRINGE 0 ML IV SCH (17:37)
--- NOTE | 2019-04-13 20:23 | Hospitalist Progress Note ---
Date of Service April 13, 2019 Assessment & Plan (1) Atrial fibrillation with RVR: Atrial fibrillation in RVR Currently rate controlled, remains in atrial fibrillation Continue metoprolol, Coumadin with heparin bridge Appreciate cardiology service recommendations Acute diastolic CHF exacerbation Cardiogram: Noted Lasix increased to 40 mg IV every 12 Seems to be responding to diuresis, continue to monitor History of aortic valve replacement As per Dr. Amaro, "on review of echocardiogram his valve visually does not appear to be a bioprosthetic nor mechanical valve. I cannot rule out a homograft but direct visualization does appear to be a [place] aortic valve. He does have a mitral annuloplasty ring in place suggest history of mitral valve repair. There is severe mitral regurgitation present and pulmonary hypertension" Pulmonary hypertension Likely secondary to mitral valve regurgitation Patient saturating well on room air Hypertension Stable Continue metoprolol lisinopril, continue to monitor DVT prophylaxis Heparin drip Disposition Pending Lives with his family at home Likely to be discharged to home with home health services Case and plan of care discussed with patient in detail and at length all questions were answered He is understanding, agreeable, comfortable plan of care Subjective Follow-up for volume overload, atrial fibrillation Remains in atrial fibrillation but currently rate controlled Seen sitting up in bed, comfortable, not in distress States breathing is improving today compared to yesterday Denies chest pain, dizziness, nausea or vomiting, chest pain Denies bleeding Denies other symptoms Review of Systems Review of Systems: All systems reviewed & are unremarkable except as noted in HPI & below Physical Exam Physical Exam: General- oriented x 3, not in distress, speaks in sentences with no effort or accessory muscle use Head- atraumatic Eyes- PERRL, EOMI, anicteric ENT- oropharynx clear Neck- supple, positive mild JVD, no adenopathy, no thyromegaly; carotids +2/2, no bruits appreciated Lungs-positive mild rales at the bases, no wheezing, good air entry bilaterally Heart- normal rate, irregularly irregular rhythm; no murmur, no gallop, no rub appreciated Abdomen- normal bowel sounds, nondistended, soft, nontender, no masses or hepatosplenomegaly Extremities-trace pretibial edema, no calf tenderness; peripheral pulses intact Neuro- alert, oriented x 3; CN 2-12 grossly intact; motor 5/5 bilaterally;sensation 100% on all extremities; no other gross focal neurologic deficits Skin- warm & dry Results & Data ([facility]) Vital Signs (Past 12 Hours) Vital Signs Temp Pulse Resp BP Pulse Ox 04/13/19 15:16 36.4 C L 59 L 19 123/83 97 04/13/19 11:18 36.3 C L 75 19 116/83 96 Laboratory Results Laboratory Results - last 24 hr 04/12/19 04/13/19 04/13/19 23:28 01:00 01:34 WBC RBC Hgb Hct MCV MCH MCHC RDW Std Deviation RDW Coeff of [place] Plt Count MPV Immature Gran % (Auto) Neut % (Auto) Lymph % (Auto) [place] % (Auto) Eos % (Auto) Baso % (Auto) Immature Gran # (Auto) Neut # (Auto) Lymph # (Auto) [place] # (Auto) Eos # (Auto) Baso # (Auto) APTT PTT Ratio Sodium 139 Potassium 3.9 Chloride 111 H Carbon Dioxide 23 Anion Gap 5.0 BUN 25 H Creatinine 1.09 Est Cr Clr Drug Dosing 51.3 Est GFR ( Amer) 72.4 Est GFR (Non-Af Amer) 62.4 BUN/Creatinine Ratio 22.7 H Glucose 99 Calcium 8.3 L Magnesium 1.8 Total Bilirubin 0.7 AST 35 ALT 73 Alkaline Phosphatase 95 Troponin I < 0.015 0.018 Total Protein 5.4 L Albumin 2.8 L Globulin 2.6 Albumin/Globulin Ratio 1.1 Urine Color Yellow Urine Appearance Clear Urine pH 5.0 Ur Specific [place] 1.008 Urine Protein Negative Urine Glucose (UA) Negative Urine Ketones Negative Urine Blood 1+ H Urine Nitrite Negative Urine Bilirubin Negative Urine Urobilinogen Negative Ur Leukocyte Esterase Negative Urine WBC (Auto) 0 Urine RBC (Auto) 0-4 U Hyaline Cast (Auto) 1-5 U Epithel Cells (Auto) 0-5 Urine Bacteria (Auto) Negative 04/13/19 04/13/19 04/13/19 01:34 01:34 08:59 WBC 6.13 RBC 4.04 L Hgb 13.2 L Hct 38.7 L MCV 95.8 MCH 32.7 MCHC 34.1 RDW Std Deviation 50.5 H RDW Coeff of [place] 14.4 Plt Count 129 L MPV 10.4 Immature Gran % (Auto) 0.2 Neut % (Auto) 72.4 Lymph % (Auto) 16.5 [place] % (Auto) 8.3 Eos % (Auto) 2.3 Baso % (Auto) 0.3 Immature Gran # (Auto) 0.01 Neut # (Auto) 4.44 Lymph # (Auto) 1.01 L [place] # (Auto) 0.51 Eos # (Auto) 0.14 Baso # (Auto) 0.02 APTT 82.8 H* 44.1 H PTT Ratio 3.1 1.6 Sodium Potassium Chloride Carbon Dioxide Anion Gap BUN Creatinine Est Cr Clr Drug Dosing Est GFR ( Amer) Est GFR (Non-Af Amer) BUN/Creatinine Ratio Glucose Calcium Magnesium Total Bilirubin AST ALT Alkaline Phosphatase Troponin I Total Protein Albumin Globulin Albumin/Globulin Ratio Urine Color Urine Appearance Urine pH Ur Specific [place] Urine Protein Urine Glucose (UA) Urine Ketones Urine Blood Urine Nitrite Urine Bilirubin Urine Urobilinogen Ur Leukocyte Esterase Urine WBC (Auto) Urine RBC (Auto) U Hyaline Cast (Auto) U Epithel Cells (Auto) Urine Bacteria (Auto) 04/13/19 15:28 WBC RBC Hgb Hct MCV MCH MCHC RDW Std Deviation RDW Coeff of Riley Plt Count MPV Immature Gran % (Auto) Neut % (Auto) Lymph % (Auto) [place] % (Auto) Eos % (Auto) Baso % (Auto) Immature Gran # (Auto) Neut # (Auto) Lymph # (Auto) [place] # (Auto) Eos # (Auto) Baso # (Auto) APTT 75.8 H* PTT Ratio 2.8 Sodium Potassium Chloride Carbon Dioxide Anion Gap BUN Creatinine Est Cr Clr Drug Dosing Est GFR ( Amer) Est GFR (Non-Af Amer) BUN/Creatinine Ratio Glucose Calcium Magnesium Total Bilirubin AST ALT Alkaline Phosphatase Troponin I Total Protein Albumin Globulin Albumin/Globulin Ratio Urine Color Urine Appearance Urine pH Ur Specific [place] Urine Protein Urine Glucose (UA) Urine Ketones Urine Blood Urine Nitrite Urine Bilirubin Urine Urobilinogen Ur Leukocyte Esterase Urine WBC (Auto) Urine RBC (Auto) U Hyaline Cast (Auto) U Epithel Cells (Auto) Urine Bacteria (Auto)
[2019-04-13] MEDS: TAMSULOSIN HCL 0.4 MG CAP PO SCH (21:39)
[2019-04-13 22:17] LABS: Partial Thromboplastin Ratio 1.7
[2019-04-14 08:08] LABS: INR 1.2 (0.9-1.1); Partial Thromboplastin Ratio 1.9; Prothrombin Time 12.5 Seconds (9.0-12.0)
[2019-04-14 08:17] LABS: Partial Thromboplastin Time 50.7 Seconds (21.0-31.0)
[2019-04-14] MEDS: CHOLECALCIFEROL (VITAMIN D) 400 UNITS TABLET PO SCH (08:26)
[2019-04-14] MEDS: POTASSIUM CHLORIDE 20 MEQ TABCR PO SCH (08:26)
[2019-04-14] MEDS: ASPIRIN 81 MG ECTAB PO SCH (08:26)
[2019-04-14] MEDS: METOPROLOL TARTRATE 25 MG TAB PO SCH ×2 (08:26→20:55)
[2019-04-14] MEDS: FUROSEMIDE 40 MG in SYRINGE 0 ML IV SCH (08:26)
--- NOTE | 2019-04-14 10:09 | Cardiology Progress Note ---
Date of Service April 14, 2019 Assessment & Plan (1) Mitral regurgitation: (2) Atrial fibrillation with RVR: (3) Acute CHF: (4) Acute diastolic CHF (congestive heart failure): (5) Pulmonary hypertension: We do not have all the records from [place] where he has received the majority of his healthcare. The patient is cognitively aware and engaging. His description of his operation in 2005 in [place] would indicate no bypasses, but he is pretty good about having a bicuspid aortic valve which was replaced along with a root repair. He does not remember a mitral valve annulus ring or repair. Our echocardiogram report here describes the mitral annular ring with mitral regurgitation, mild LV systolic dysfunction, severe left atrial enlargement and pulmonary hypertension. It states that he does not appear to have a bicuspid aortic valve. He may have had a homograft or possibly a [place] procedure. We will have to wait for his records from [place] to be certain. He is moving in the right direction. He is diuresed well over the past several days. I will switch his Lasix to oral today. The plan is unchanged in regard to atrial fibrillation which will be rate control and anticoagulation. We are still adjusting his guideline directed medication for his heart failure. I think he is out of acute congestive heart failure. He wants to ambulate in the [place] and I think he can do that with assistance. Subjective The patient feels improved and is asking to walk in the hallways. He had a large diuresis yesterday and he is down 8 kg since admission. Review of Systems Review of Systems: All systems reviewed & are unremarkable except as noted in HPI & below Nothing additional to add. Physical Exam Physical Exam: General: no acute distress and stated age Head: normocephalic, no masses, lesions, tenderness or abnormalities Eyes: conjunctiva are pink and non-injected, sclera clear Neck: supple, no adenopathy, no bruits, normal jugular venous pulse, no hepatojugular reflux Chest: normal shape and normal respiratory effort Lungs: clear to auscultation and percussion Cardiac Exam: - irregular rate & rhythm, no murmurs gallops or rubs - normal S1, normal S2 Pulses: 2(+) throughout Abdomen: abdomen soft, non-tender, no abnormal masses and no hepatosplenomegaly Musculoskeletal: no gait disturbance, no joint inflammation, no deforming arthritis Extremities: no edema and no cyanosis Neuro: grossly normal exam Results & Data Vital Signs (Past 12 Hours) Vital Signs Temp Pulse Pulse Resp BP Pulse Ox 04/14/19 07:08 36.6 C 81 18 121/80 95 04/14/19 04:09 36.3 C L 60 18 131/94 95 04/14/19 00:46 36.3 C L 90 18 115/85 94 04/14/19 00:00 101 H Laboratory Results Laboratory Results - last 24 hr 04/13/19 04/13/19 04/14/19 15:28 21:50 07:19 PT 12.5 H INR 1.2 H APTT 75.8 H* 47.0 H* 50.7 H* PTT Ratio 2.8 1.7 1.9 Medications Administered Current Inpatient Medications Aspirin (Ecotrin Ectab) 81 mg PO DAILY [facility] Stop: 05/13/19 08:59 Last Admin: 04/14/19 08:26 Dose: 81 mg Documented by: Furosemide (Lasix) 40 mg PO BID17 [facility] Stop: 05/14/19 16:59 Heparin Sodium/Dextrose (Heparin Sodium/Dextrose) 25,000 units in 500 mls @ 24 mls/hr IV .[id number] [facility]; Protocol Stop: 05/12/19 18:44 Last Titration: 04/14/19 07:13 Dose: 1,200 units/hr, 24 mls/hr Documented by: Lisinopril (Zestril) 5 mg PO DAILY [facility] Stop: 05/15/19 08:59 Metoprolol Tartrate (Lopressor) 25 mg PO BID [facility] Stop: 05/12/19 20:59 Last Admin: 04/14/19 08:26 Dose: 25 mg Documented by: Metoprolol Tartrate (Lopressor) 2.5 mg IV Q6 PRN PRN Reason: Tachycardia Stop: 05/13/19 00:00 Potassium Chloride (Klor-Con M20) 40 meq PO QAM [facility] Stop: 05/13/19 16:59 Last Admin: 04/14/19 08:26 Dose: 40 meq Documented by: Tamsulosin HCl (Flomax) 0.4 mg PO HS [facility] Stop: 05/12/19 21:04 Last Admin: 04/13/19 21:39 Dose: 0.4 mg Documented by: Vitamin D (Vitamin D3) 400 units PO DAILY [facility] Stop: 05/13/19 08:59 Last Admin: 04/14/19 08:26 Dose: 400 units Documented by: Warfarin Sodium (Coumadin) 5 mg PO DAILY@1600 [facility] Stop: 05/13/19 16:59 Last Admin: 04/13/19 17:37 Dose: 5 mg Documented by: (1) Acute CHF Heart failure type: unspecified Qualified Code(s): I50.9 - Heart failure, unspecified
--- NOTE | 2019-04-14 11:15 | Hospitalist Progress Note ---
Date of Service April 14, 2019 Assessment & Plan (1) Atrial fibrillation with RVR: Atrial fibrillation in RVR Currently rate controlled, remains in atrial fibrillation Continue metoprolol INR 1.2, Coumadin with heparin bridge Appreciate cardiology service recommendations Acute Systolic CHF exacerbation Echocardiogram: EF 45 to 50% Diuresing well Transition from IV to oral Lasix 40 mg p.o. twice daily Continue metoprolol, lisinopril History of aortic valve replacement As per Dr. Amaro, "on review of echocardiogram his valve visually does not appear to be a bioprosthetic nor mechanical valve. I cannot rule out a homograft but direct visualization does appear to be a [place] aortic valve. He does have a mitral annuloplasty ring in place suggest history of mitral valve repair. There is severe mitral regurgitation present and pulmonary hypertension" Pulmonary hypertension Likely secondary to mitral valve regurgitation Patient saturating well on room air Hypertension Stable Continue metoprolol lisinopril, continue to monitor DVT prophylaxis Heparin drip And Coumadin Disposition Pending Lives with his family at home Likely to be discharged to home with home health services Case and plan of care discussed with patient in detail and at length all questions were answered He is understanding, agreeable, comfortable plan of care Subjective Follow-up for CHF exacerbation, atrial fibrillation RVR Seen sitting up in bed, comfortable, not in distress, in good spirits States he feels to continue to improve today Shortness of breath has resolved Denies chest pain or palpitations, dizziness No bleeding Denies other symptoms Review of Systems Review of Systems: All systems reviewed & are unremarkable except as noted in HPI & below Physical Exam Physical Exam: General- oriented x 3, not in distress, speaks in sentences with no effort or accessory muscle use Eyes- anicteric Neck- no JVD Lungs- Faint rales bilateral bases, no wheezing, good air entry bilaterally Heart- normal rate,Irregularly irregularrhythm; no murmurs Abdomen- normal bowel sounds, nondistended, soft, nontender Extremities- no pretibial edema, no calf tenderness Neuro- alert, oriented x 3; no gross focal neurologic deficits Skin- warm & dry Results & Data ([facility]) Vital Signs (Past 12 Hours) Vital Signs Temp Pulse Pulse Resp BP Pulse Ox 04/14/19 07:08 36.6 C 81 18 121/80 95 04/14/19 04:09 36.3 C L 60 18 131/94 95 04/14/19 00:46 36.3 C L 90 18 115/85 94 04/14/19 00:00 101 H Laboratory Results Laboratory Results - last 24 hr 04/13/19 04/13/19 04/14/19 15:28 21:50 07:19 PT 12.5 H INR 1.2 H APTT 75.8 H* 47.0 H* 50.7 H* PTT Ratio 2.8 1.7 1.9
[2019-04-14 11:30] LABS: Basophils # (auto) 0.04 K/uL (0-0.2); Basophils % (auto) 0.6 %; Eosinophils # (auto) 0.19 K/uL (0-0.5); Eosinophils % (auto) 2.8 %; Hematocrit (blood only) 43.4 % (42-52); Hemoglobin 14.8 g/dL (14.0-18.0); Immature Granulocytes # (auto) 0.01 K/uL (0.00-0.02); Immature Granulocytes % (auto) 0.1 %; Lymphocytes # (auto) 0.96 K/uL (1.2-3.4); Lymphocytes % (auto) 14.4 %; Mean Corpuscular Hemoglobin 32.6 pg (25-34); Mean Corpuscular Hgb Conc 34.1 g/dL (32-36); Mean Corpuscular Volume 95.6 fL (80-100); Mean Platelet Volume 10.3 fL (7.4-10.4); Monocytes % (auto) 10.5 %; Neutrophils # (auto) 4.78 K/uL (1.4-6.5); Neutrophils % (auto) 71.6 %; Platelet Count 141 K/uL (130-400); RDW Coefficient of Variation 14.5 % (11.5-14.5); RDW Standard Deviation 50.4 fL (36.4-46.3); Red Blood Count 4.54 M/uL (4.7-6.1); White Blood Count 6.68 K/uL (4.8-10.8)
[2019-04-14] MEDS: HEPARIN SODIUM/DEXTROSE 25,000 UNITS/500 ML BAG IV SCH (11:45)
[2019-04-14 12:04] LABS: BUN Creatinine Ratio 21.6 (10-20); Calcium 9.1 mg/dl (8.5-10.1); Creatinine Clr Calc Pharmacy 46.1 ml/min; Est GFR (African American) 64.4; Est GFR (Non-African American) 55.6; Potassium 4.1 mmol/L (3.5-5.1)
[2019-04-14] MEDS: FUROSEMIDE 40 MG TAB PO SCH (16:16)
[2019-04-14] MEDS: WARFARIN SOD 5 MG TAB PO SCH (16:16)
[2019-04-14] MEDS: TAMSULOSIN HCL 0.4 MG CAP PO SCH (20:55)
[2019-04-15 06:18] LABS: Basophils # (auto) 0.05 K/uL (0-0.2); Basophils % (auto) 0.9 %; Eosinophils # (auto) 0.26 K/uL (0-0.5); Eosinophils % (auto) 4.6 %; Hematocrit (blood only) 39.6 % (42-52); Hemoglobin 13.6 g/dL (14.0-18.0); Immature Granulocytes # (auto) 0.01 K/uL (0.00-0.02); Immature Granulocytes % (auto) 0.2 %; Lymphocytes % (auto) 19.3 %; Mean Corpuscular Hemoglobin 32.7 pg (25-34); Mean Corpuscular Hgb Conc 34.3 g/dL (32-36); Mean Corpuscular Volume 95.2 fL (80-100); Mean Platelet Volume 10.6 fL (7.4-10.4); Monocytes # (auto) 0.68 K/uL (0.11-0.59); Monocytes % (auto) 11.9 %; Neutrophils # (auto) 3.61 K/uL (1.4-6.5); Neutrophils % (auto) 63.1 %; Platelet Count 133 K/uL (130-400); RDW Coefficient of Variation 14.3 % (11.5-14.5); RDW Standard Deviation 48.9 fL (36.4-46.3); Red Blood Count 4.16 M/uL (4.7-6.1); White Blood Count 5.71 K/uL (4.8-10.8)
[2019-04-15 06:47] LABS: BUN Creatinine Ratio 22.6 (10-20); Calcium 8.9 mg/dl (8.5-10.1); Creatinine Clr Calc Pharmacy 49.2 ml/min; Est GFR (Non-African American) 60.4; Potassium 4.1 mmol/L (3.5-5.1)
[2019-04-15 06:55] LABS: INR 1.3 (0.9-1.1); Partial Thromboplastin Ratio 1.9; Prothrombin Time 12.9 Seconds (9.0-12.0)
[2019-04-15 06:57] LABS: Partial Thromboplastin Time 52.4 Seconds (21.0-31.0)
[2019-04-15] MEDS: HEPARIN SODIUM/DEXTROSE 25,000 UNITS/500 ML BAG IV SCH (08:58)
[2019-04-15] MEDS: POTASSIUM CHLORIDE 20 MEQ TABCR PO SCH (09:00)
[2019-04-15] MEDS ORDERED: lisinopriL 5 MG TAB PO SCH (09:00)
[2019-04-15] MEDS: METOPROLOL TARTRATE 25 MG TAB PO SCH ×2 (09:00→20:52)
[2019-04-15] MEDS: FUROSEMIDE 40 MG TAB PO SCH (09:00)
[2019-04-15] MEDS: CHOLECALCIFEROL (VITAMIN D) 400 UNITS TABLET PO SCH (09:00)
[2019-04-15] MEDS: ASPIRIN 81 MG ECTAB PO SCH (09:01)
--- NOTE | 2019-04-15 13:08 | Cardiology Progress Note ---
Date of Service April 15, 2019 Assessment & Plan (1) Mitral regurgitation: (2) Atrial fibrillation with RVR: (3) Acute CHF: (4) Acute diastolic CHF (congestive heart failure): (5) Pulmonary hypertension: Subjective The patient feels well and has no ongoing complaints. I had a long discussion with the patient regarding his health care. He would like to have copies of his medical record when he leaves. 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 Review of Systems Review of Systems: All systems reviewed & are unremarkable except as noted in HPI & below Nothing additional to add. Physical Exam Physical Exam: General: no acute distress and stated age Head: normocephalic, no masses, lesions, tenderness or abnormalities Eyes: conjunctiva are pink and non-injected, sclera clear Neck: supple, no adenopathy, no bruits, normal jugular venous pulse, no hepatojugular reflux Chest: normal shape and normal respiratory effort Lungs: clear to auscultation and percussion Cardiac Exam: - regular rate & rhythm, no murmurs gallops or rubs - normal S1, normal S2 Pulses: 2(+) throughout Abdomen: abdomen soft, non-tender, no abnormal masses and no hepatosplenomegaly Musculoskeletal: no gait disturbance, no joint inflammation, no deforming a rthritis Extremities: no edema and no cyanosis Neuro: grossly normal exam Results & Data Vital Signs (Past 12 Hours) Vital Signs Temp Pulse Pulse Resp BP Pulse Ox 04/15/19 12:03 36.4 C L 84 18 117/76 95 04/15/19 07:41 84 04/15/19 03:25 36.6 C 63 18 111/71 93 Laboratory Results Laboratory Results - last 24 hr 04/15/19 04/15/19 04/15/19 05:41 05:41 05:41 WBC 5.71 RBC 4.16 L Hgb 13.6 L Hct 39.6 L MCV 95.2 MCH 32.7 MCHC 34.3 RDW Std Deviation 48.9 H RDW Coeff of Riley 14.3 Plt Count 133 MPV 10.6 H Immature Gran % (Auto) 0.2 Neut % (Auto) 63.1 Lymph % (Auto) 19.3 [place] % (Auto) 11.9 Eos % (Auto) 4.6 Baso % (Auto) 0.9 Immature Gran # (Auto) 0.01 Neut # (Auto) 3.61 Lymph # (Auto) 1.10 L [place] # (Auto) 0.68 H Eos # (Auto) 0.26 Baso # (Auto) 0.05 PT 12.9 H INR 1.3 H APTT 52.4 H* PTT Ratio 1.9 Sodium 136 Potassium 4.1 Chloride 100 Carbon Dioxide 29 Anion Gap 7.0 BUN 25 H Creatinine 1.12 Est Cr Clr Drug Dosing 49.2 Est GFR ( Amer) 70.0 Est GFR (Non-Af Amer) 60.4 BUN/Creatinine Ratio 22.6 H Glucose 87 Calcium 8.9 Medications Administered Current Inpatient Medications Aspirin (Ecotrin Ectab) 81 mg PO DAILY [facility] Stop: 05/13/19 08:59 Last Admin: 04/15/19 09:01 Dose: 81 mg Documented by: Furosemide (Lasix) 40 mg PO BID17 [facility] Stop: 05/14/19 16:59 Last Admin: 04/15/19 09:00 Dose: 40 mg Documented by: Heparin Sodium/Dextrose (Heparin Sodium/Dextrose) 25,000 units in 500 mls @ 24 mls/hr IV .[id number] [facility]; Protocol Stop: 05/12/19 18:44 Last Admin: 04/15/19 08:58 Dose: 1,200 units/hr, 24 mls/hr Documented by: Lisinopril (Zestril) 5 mg PO DAILY [facility] Stop: 05/15/19 08:59 Last Admin: 04/15/19 09:00 Dose: 5 mg Documented by: Metoprolol Tartrate (Lopressor) 25 mg PO BID [facility] Stop: 05/12/19 20:59 Last Admin: 04/15/19 09:00 Dose: 25 mg Documented by: Metoprolol Tartrate (Lopressor) 2.5 mg IV Q6 PRN PRN Reason: Tachycardia Stop: 05/13/19 00:00 Potassium Chloride (Klor-Con M20) 40 meq PO QAM [facility] Stop: 05/13/19 16:59 Last Admin: 04/15/19 09:00 Dose: 40 meq Documented by: Tamsulosin HCl (Flomax) 0.4 mg PO HS [facility] Stop: 05/12/19 21:04 Last Admin: 04/14/19 20:55 Dose: 0.4 mg Documented by: Vitamin D (Vitamin D3) 400 units PO DAILY [facility] Stop: 05/13/19 08:59 Last Admin: 04/15/19 09:00 Dose: 400 units Documented by: Warfarin Sodium (Coumadin) 5 mg PO DAILY@1600 [facility] Stop: 05/13/19 16:59 Last Admin: 04/14/19 16:16 Dose: 5 mg Documented by: (1) Acute CHF Heart failure type: unspecified Qualified Code(s): I50.9 - Heart failure, unspecified
[2019-04-15] MEDS ORDERED: lisinopriL 5 MG TAB PO ONE (13:11)
[2019-04-15] MEDS: WARFARIN SOD 5 MG TAB PO SCH (16:42)
[2019-04-15] MEDS: TAMSULOSIN HCL 0.4 MG CAP PO SCH (20:52)
--- NOTE | 2019-04-15 23:50 | Hospitalist Progress Note ---
Date of Service April 15, 2019 Assessment & Plan (1) Atrial fibrillation with RVR: Atrial fibrillation in RVR Currently rate controlled, remains in atrial fibrillation Continue metoprolol INR 1.3, Coumadin with heparin bridge Appreciate cardiology service recommendations Acute Systolic CHF exacerbation Echocardiogram: EF 45 to 50% Diuresing well Transition from IV to oral Lasix 40 mg p.o. daily Continue metoprolol, lisinopril History of aortic valve replacement As per Dr. Amaro, "on review of echocardiogram his valve visually does not appear to be a bioprosthetic nor mechanical valve. I cannot rule out a homograft but direct visualization does appear to be a [place] aortic valve. He does have a mitral annuloplasty ring in place suggest history of mitral valve repair. There is severe mitral regurgitation present and pulmonary hypertension" Pulmonary hypertension Likely secondary to mitral valve regurgitation Patient saturating well on room air Hypertension Stable Continue metoprolol lisinopril, continue to monitor DVT prophylaxis Heparin drip And Coumadin Disposition Pending Lives with his family at home Likely to be discharged to home with home health services Case and plan of care discussed with patient in detail and at length all questions were answered He is understanding, agreeable, comfortable plan of care Subjective ff up for a fib, etc seen resting in bed, comfortable a fib HR controlled states he continues to feel improved no SOB, chest pain, dyspnea, palpitation no bleeding no other symptoms Review of Systems Review of Systems: All systems reviewed & are unremarkable except as noted in HPI & below Physical Exam Physical Exam: General- oriented x 3, not in distress, speaks in sentences with no effort or accessory muscle use Eyes- anicteric Neck- no JVD Lungs- clear BS BL Heart- normal rate, irreg irregular rhythm; no murmurs Abdomen- normal bowel sounds, nondistended, soft, nontender Extremities- no pretibial edema, no calf tenderness Neuro- alert, oriented x 3; no gross focal neurologic deficits Skin- warm & dry Results & Data ([facility]) Vital Signs (Past 12 Hours) Vital Signs Temp Pulse Pulse Resp BP Pulse Ox 04/15/19 23:42 102 H 04/15/19 19:12 36.7 C 81 18 111/67 93 04/15/19 15:46 36.6 C 73 18 112/75 95 04/15/19 12:03 36.4 C L 84 18 117/76 95 Laboratory Results Laboratory Results - last 24 hr 04/15/19 04/15/19 04/15/19 05:41 05:41 05:41 WBC 5.71 RBC 4.16 L Hgb 13.6 L Hct 39.6 L MCV 95.2 MCH 32.7 MCHC 34.3 RDW Std Deviation 48.9 H RDW Coeff of Riley 14.3 Plt Count 133 MPV 10.6 H Immature Gran % (Auto) 0.2 Neut % (Auto) 63.1 Lymph % (Auto) 19.3 [place] % (Auto) 11.9 Eos % (Auto) 4.6 Baso % (Auto) 0.9 Immature Gran # (Auto) 0.01 Neut # (Auto) 3.61 Lymph # (Auto) 1.10 L [place] # (Auto) 0.68 H Eos # (Auto) 0.26 Baso # (Auto) 0.05 PT 12.9 H INR 1.3 H APTT 52.4 H* PTT Ratio 1.9 Sodium 136 Potassium 4.1 Chloride 100 Carbon Dioxide 29 Anion Gap 7.0 BUN 25 H Creatinine 1.12 Est Cr Clr Drug Dosing 49.2 Est GFR ( Amer) 70.0 Est GFR (Non-Af Amer) 60.4 BUN/Creatinine Ratio 22.6 H Glucose 87 Calcium 8.9
[2019-04-15] MEDS ORDERED: WARFARIN SOD 2.5 MG TAB PO ONE (23:53)
[2019-04-16] MEDS: HEPARIN SODIUM/DEXTROSE 25,000 UNITS/500 ML BAG IV SCH (06:10)
[2019-04-16 08:08] LABS: Basophils # (auto) 0.05 K/uL (0-0.2); Basophils % (auto) 0.9 %; Eosinophils # (auto) 0.22 K/uL (0-0.5); Eosinophils % (auto) 3.9 %; Hematocrit (blood only) 40.4 % (42-52); Hemoglobin 13.7 g/dL (14.0-18.0); Immature Granulocytes # (auto) 0.01 K/uL (0.00-0.02); Immature Granulocytes % (auto) 0.2 %; Lymphocytes # (auto) 0.95 K/uL (1.2-3.4); Lymphocytes % (auto) 16.9 %; Mean Corpuscular Hemoglobin 32.4 pg (25-34); Mean Corpuscular Hgb Conc 33.9 g/dL (32-36); Mean Corpuscular Volume 95.5 fL (80-100); Mean Platelet Volume 10.5 fL (7.4-10.4); Monocytes % (auto) 10.7 %; Neutrophils # (auto) 3.78 K/uL (1.4-6.5); Neutrophils % (auto) 67.4 %; Platelet Count 134 K/uL (130-400); RDW Coefficient of Variation 14.2 % (11.5-14.5); RDW Standard Deviation 49.8 fL (36.4-46.3); Red Blood Count 4.23 M/uL (4.7-6.1); White Blood Count 5.61 K/uL (4.8-10.8)
[2019-04-16] MEDS: lisinopriL 10 MG TAB PO SCH ×2 (08:10→14:32)
[2019-04-16] MEDS: METOPROLOL TARTRATE 25 MG TAB PO SCH (08:10)
[2019-04-16] MEDS: ASPIRIN 81 MG ECTAB PO SCH (08:10)
[2019-04-16] MEDS: CHOLECALCIFEROL (VITAMIN D) 400 UNITS TABLET PO SCH (08:10)
[2019-04-16 08:24] LABS: INR 1.4 (0.9-1.1)
[2019-04-16 08:29] LABS: BUN Creatinine Ratio 21.8 (10-20); Calcium 9.1 mg/dl (8.5-10.1); Creatinine Clr Calc Pharmacy 46.2 ml/min; Est GFR (African American) 65.1; Est GFR (Non-African American) 56.2; Potassium 4.3 mmol/L (3.5-5.1)
[2019-04-16 08:35] LABS: Partial Thromboplastin Time 55.2 Seconds (21.0-31.0)
[2019-04-16] MEDS ORDERED: POTASSIUM CHLORIDE 20 MEQ TABCR PO SCH (09:00)
[2019-04-16] MEDS ORDERED: FUROSEMIDE 40 MG TAB PO SCH (09:00)
--- NOTE | 2019-04-16 14:43 | Cardiology Progress Note ---
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 He had aortic valve replacement in 2005 and the appearance of the valve by echocardiography suggest a homograft. He may have also had a mitral valve repair with a annular ring. He presented with marked volume overload and heart failure. He has lost approximately 10 kg of fluid weight with diuresis. His initial echocardiogram revealed pulmonary hypertension and cor pulmonale which is most likely the result of severe mitral regurgitation. He has persistent atrial fibrillation and has been started on warfarin. He also has rate control with metoprolol. It is our feeling that the atrial fibrillation will be chronic and the patient will not be able to maintain sinus rhythm even if cardioverted based on his echocardiogram with severe dilatation of both the right and left atrium's. Most of his health care has been provided with a cardiology group in [place]. He recently moved here to be closer to family and has not transitioned all of his healthcare. I believe he is stable enough to be disch arged with outpatient follow-up. He should be seen in our heart failure clinic later this week with an early appointment. He will also have to be enrolled in our Coumadin clinic. I would continue these current medications on discharge. Subjective The patient has no cardiac complaints today. He is anxious to return home. Review of Systems Review of Systems: All systems reviewed & are unremarkable except as noted in HPI & below Nothing additional to add. Physical Exam Physical Exam: General: no acute distress and stated age Head: normocephalic, no masses, lesions, tenderness or abnormalities Eyes: conjunctiva are pink and non-injected, sclera clear Neck: supple, no adenopathy, no bruits, normal jugular venous pulse, no hepatojugular reflux Chest: normal shape and normal respiratory effort Lungs: clear to auscultation and percussion Cardiac Exam: - irregular rate & rhythm, holosystolic murmur at the apex of the heart, normal S1, normal S2 Pulses: 2(+) throughout Abdomen: abdomen soft, non-tender, no abnormal masses and no hepatosplenomegaly Musculoskeletal: no gait disturbance, no joint inflammation, no deforming arthritis Extremities: no edema and no cyanosis Neuro: grossly normal exam Results & Data Vital Signs (Past 12 Hours) Vital Signs Temp Pulse Pulse Resp BP Pulse Ox 04/16/19 11:41 36.5 C 85 19 131/83 96 04/16/19 09:26 87 04/16/19 07:54 36.5 C 75 19 107/71 93 04/16/19 04:10 36.7 C 54 L 18 116/75 95 Laboratory Results Laboratory Results - last 24 hr 04/16/19 04/16/19 04/16/19 07:51 07:51 07:51 WBC 5.61 RBC 4.23 L Hgb 13.7 L Hct 40.4 L MCV 95.5 MCH 32.4 MCHC 33.9 RDW Std Deviation 49.8 H RDW Coeff of [place] 14.2 Plt Count 134 MPV 10.5 H Immature Gran % (Auto) 0.2 Neut % (Auto) 67.4 Lymph % (Auto) 16.9 [place] % (Auto) 10.7 Eos % (Auto) 3.9 Baso % (Auto) 0.9 Immature Gran # (Auto) 0.01 Neut # (Auto) 3.78 Lymph # (Auto) 0.95 L [place] # (Auto) 0.60 H Eos # (Auto) 0.22 Baso # (Auto) 0.05 PT 14.0 H INR 1.4 H APTT 55.2 H* PTT Ratio 2.0 Sodium 136 Potassium 4.3 Chloride 102 Carbon Dioxide 29 Anion Gap 4.0 BUN 26 H Creatinine 1.19 Est Cr Clr Drug Dosing 46.2 Est GFR ( Amer) 65.1 Est GFR (Non-Af Amer) 56.2 BUN/Creatinine Ratio 21.8 H Glucose 92 Calcium 9.1 Medications Administered Current Inpatient Medications Aspirin (Ecotrin Ectab) 81 mg PO DAILY [facility] Stop: 05/13/19 08:59 Last Admin: 04/16/19 08:10 Dose: 81 mg Documented by: Furosemide (Lasix) 40 mg PO DAILY [facility] Stop: 05/16/19 08:59 Last Admin: 04/16/19 08:10 Dose: 40 mg Documented by: Lisinopril (Zestril) 10 mg PO DAILY [facility] Stop: 05/16/19 08:59 Last Admin: 04/16/19 14:32 Dose: 10 mg Documented by: Metoprolol Tartrate (Lopressor) 25 mg PO BID [facility] Stop: 05/12/19 20:59 Last Admin: 04/16/19 08:10 Dose: 25 mg Documented by: Metoprolol Tartrate (Lopressor) 2.5 mg IV Q6 PRN PRN Reason: Tachycardia Stop: 05/13/19 00:00 Potassium Chloride (Klor-Con M20) 20 meq PO QAM [facility] Stop: 05/16/19 08:59 Last Admin: 04/16/19 08:10 Dose: 20 meq Documented by: Tamsulosin HCl (Flomax) 0.4 mg PO HS [facility] Stop: 05/12/19 21:04 Last Admin: 04/15/19 20:52 Dose: 0.4 mg Documented by: Vitamin D (Vitamin D3) 400 units PO DAILY [facility] Stop: 05/13/19 08:59 Last Admin: 04/16/19 08:10 Dose: 400 units Documented by: Warfarin Sodium (Coumadin) 5 mg PO DAILY@1600 [facility] Stop: 05/13/19 16:59 Last Admin: 04/15/19 16:42 Dose: 5 mg Documented by: (1) Acute CHF Heart failure type: unspecified Qualified Code(s): I50.9 - Heart failure, unspecified
--- NOTE | 2019-04-16 16:32 | Hospitalist Progress Note ---
Date of Service April 16, 2019 Assessment & Plan (1) Atrial fibrillation with RVR: Atrial fibrillation in RVR remains rate controlled, remains in atrial fibrillation Continue metoprolol 25mg po BID INR 1.4, given Coumadin with heparin bridge evaluated by Dr. Bailey cleared for discharge, discharge plan: Metoprolol tartrate 25 mg twice daily Coumadin 5 mg p.o. daily, Coumadin clinic notified, will call patient soon for INR check and further Coumadin dosing Follow-up with cardiology clinic in Tuesday this week Acute Systolic CHF exacerbation Echocardiogram: EF 45 to 50%, Severe mitral regurgitation, pulmonary hypertension Diuresed well Transition from IV to oral Lasix 40 mg p.o. daily With potassium Continue metoprolol, [id number] mg p.o. daily Follow-up with cardiology clinic this coming Tuesday History of aortic valve replacement As per Dr. Amaro, "on review of echocardiogram his valve visually does not appear to be a bioprosthetic nor mechanical valve. I cannot rule out a homograft but direct visualization does appear to be a [place] aortic valve. He does have a mitral annuloplasty ring in place suggest history of mitral valve repair. There is severe mitral regurgitation present and pulmonary hypertension" Pulmonary hypertension Likely secondary to mitral valve regurgitation Patient saturating well on room air Hypertension Stable Continue metoprolol lisinopril, continue to monitor DVT prophylaxis Heparin drip And Coumadin Disposition Discharge to home Follow-up with PCP on April 18, 2019 Follow-up with lens generating machine tender on Tuesday Follow up with Coumadin Clinic this week, clinic will be calling the patient for the appointment Case and plan of care discussed with patient in detail and at length all questions were answered He is understanding, agreeable, comfortable plan of care Subjective ff up for a fib, CHF seen resting in bed, comfortable states he feels fine overall no chest pain, dyspnea, palpitations, dizziness no bleeding denies other symptoms states he is ready and would like to be discharged today Review of Systems Review of Systems: All systems reviewed & are unremarkable except as noted in HPI & below Physical Exam Physical Exam: General- oriented x 3, not in distress, speaks in sentences with no effort or accessory muscle use Eyes- anicteric Neck- no JVD Lungs- clear breath sounds bilaterally, no crackles, no wheezing Heart- normal rate, regular rhythm; no murmurs Abdomen- normal bowel sounds, nondistended, soft, nontender Extremities- no pretibial edema, no calf tenderness Neuro- alert, oriented x 3; no gross focal neurologic deficits Skin- warm & dry Results & Data ([facility]) Vital Signs (Past 12 Hours) Vital Signs Temp Pulse Pulse Resp BP BP Pulse Ox 04/16/19 15:58 36.7 C 53 L 18 119/77 95 04/16/19 11:41 36.5 C 85 19 131/83 96 04/16/19 09:26 87 04/16/19 07:54 36.5 C 75 19 107/71 93 Laboratory Results Laboratory Results - last 24 hr 04/16/19 04/16/19 04/16/19 07:51 07:51 07:51 WBC 5.61 RBC 4.23 L Hgb 13.7 L Hct 40.4 L MCV 95.5 MCH 32.4 MCHC 33.9 RDW Std Deviation 49.8 H RDW Coeff of [place] 14.2 Plt Count 134 MPV 10.5 H Immature Gran % (Auto) 0.2 Neut % (Auto) 67.4 Lymph % (Auto) 16.9 [place] % (Auto) 10.7 Eos % (Auto) 3.9 Baso % (Auto) 0.9 Immature Gran # (Auto) 0.01 Neut # (Auto) 3.78 Lymph # (Auto) 0.95 L [place] # (Auto) 0.60 H Eos # (Auto) 0.22 Baso # (Auto) 0.05 PT 14.0 H INR 1.4 H APTT 55.2 H* PTT Ratio 2.0 Sodium 136 Potassium 4.3 Chloride 102 Carbon Dioxide 29 Anion Gap 4.0 BUN 26 H Creatinine 1.19 Est Cr Clr Drug Dosing 46.2 Est GFR ( Amer) 65.1 Est GFR (Non-Af Amer) 56.2 BUN/Creatinine Ratio 21.8 H Glucose 92 Calcium 9.1
--- NOTE | 2019-04-16 16:51 | Discharge Summary ---
Date of Service April 16, 2019 Admission HPI Per Admitting Provider He is 83-year-old male with significant past medical history of hypertension, osteoarthritis and history of bicuspid aortic valve with aortic regurgitation status post bioprosthetic aortic valve replacement in 2005 has been complaining of exertional shortness of breath for the last 7 to 10 days, associated with weight gain about 7 to 8 pounds and swelling of the legs. He denies any chest pain and/or palpitation associated with it. No abdominal pain nausea and/or vomit. His legs get weaker with exertion and shortness of breath. He denies any dizziness and/or numbness and tingling involving any of the extremities. No fever and/or chills. No abdominal pain, nausea and/or vomiting. Admission Exam Per Admitting Provider Physical Exam: Lying in bed without any symptoms Constitutional: well developed and well nourished; no acute distress and not ill appearing Eyes: PERRL, conjunctivae normal, anicteric sclerae ENMT: external ear and nose normal, oropharynx normal Neck: trachea midline, no thyromegaly Respiratory: normal respiratory effort Auscultation: + diminished lung sounds and + crackles (Minimal crackles at the bases) Cardiovascular: Rate/Rhythm: + abnormal rate and + abnormal rhythm Heart Sounds: + murmur Extremities: + edema (1+ bilateral pedal edema) Gastrointestinal (Abdomen): Inspection/Auscultation: abdomen normal to inspection Percussion/Palpation: abdomen soft; abdomen nontender Musculoskeletal: No acute arthritis in any joints Neurologic: moves all extremities and + focal motor deficit Lymphatic: no cervical or axillary lymphadenopathy Principal Diagnosis Atrial fibrillation, congestive heart failure Discharge Exam General- oriented x 3, not in distress, speaks in sentences with no effort or accessory muscle use Eyes- anicteric Neck- no JVD Lungs- clear breath sounds bilaterally, no crackles, no wheezing Heart- normal rate, regular rhythm; no murmurs Abdomen- normal bowel sounds, nondistended, soft, nontender Extremities- no pretibial edema, no calf tenderness Neuro- alert, oriented x 3; no gross focal neurologic deficits Skin- warm & dry Discharge Data Allergies Allergy/AdvReac Type Severity Reaction Status Date / Time Iodinated Contrast Media Allergy Severe Difficulty Unverified 04/12/19 18:34 Breathing Consultations 04/12/19 18:40 ED Decision to Admit Stat 04/12/19 19:25 Consult Cardiology Routine SINGLE VIEW CHEST CLINICAL HISTORY: Dyspnea. FINDINGS: 2 AP, portable, upright chest radiographs are obtained. No prior studies are available for comparison at the time of dictation. The examination is degraded by portable technique, apical lordotic positioning, and patient rotation. The patient is status post midline sternotomy. The heart is enlarged noting atherosclerotic calcification of the thoracic aorta. There is pulmonary vascular congestion. Scarring/atelectasis is present at the lung bases. Trace pleural effusions are suspected. No pneumothorax is seen. The skeletal structures are osteopenic. The bony thorax is grossly intact. IMPRESSION: 1. Cardiomegaly with mild pulmonary vascular congestion. 2. Trace pleural effusions. Hospital Course (1) Atrial fibrillation with RVR: Atrial fibrillation in RVR Patient presented with few day history of progressive dyspnea, nauseated with weight gain and leg edema Found to be in A. fib with RVR at the ER with CHF exacerbation Started on metoprolol tartrate 25 mg p.o. twice daily and heparin drip Remained in atrial fibrillation but rate controlled given Coumadin with heparin bridge, INR 1.4 on discharge evaluated by Dr. Bailey cleared for discharge, discharge plan: Metoprolol tartrate 25 mg twice daily Coumadin 5 mg p.o. daily, Coumadin clinic notified, will call patient soon for INR check and further Coumadin dosing Follow-up with Dr. Amaro at the [facility] cardiology clinic in Tuesday this week Acute Systolic CHF exacerbation Echocardiogram: EF 45 to 50%, Severe mitral regurgitation, pulmonary hypertension Diuresed well Transition from IV to oral Lasix 40 mg p.o. daily With potassium Continue metoprolol, [id number] mg p.o. daily Follow-up with cardiology clinic this coming Tuesday History of aortic valve replacement As per Dr. Amaro, "on review of echocardiogram his valve visually does not appear to be a bioprosthetic nor mechanical valve. I cannot rule out a homograft but direct visualization does appear to be a [place] aortic valve. He does have a mitral annuloplasty ring in place suggest history of mitral valve repair. There is severe mitral regurgitation present and pulmonary hypertension" Pulmonary hypertension Likely secondary to mitral valve regurgitation Patient saturating well on room air Hypertension Stable Continue metoprolol lisinopril, continue to monitor DVT prophylaxis Heparin drip And Coumadin given Disposition Discharge to home Follow-up with PCP on April 18, 2019 Follow-up with correctional officer lieutenant on Tuesday Follow up with Coumadin Clinic this week, clinic will be calling the patient for the appointment Case and plan of care discussed with patient in detail and at length all questions were answered He is understanding, agreeable, comfortable plan of care Total Time Total Time Spent Total Time Spent (In Minutes): 50 minutes Discharge Plan Discharge Items Patient Disposition: Home - Self-Care Reason For Visit: AF WITH RVR,CHF Discharge Diagnosis: Atrial fibrillation, congestive heart failure Activity: As commented below Activity Comment: Resume activity gradually as tolerated. Lifting: Wait until after follow-up appointment Exercise/Sports: Wait until after follow-up appointment Driving/Machine Use: No driving until allowed by primary care physician and correctional officer lieutenant. Non-emergency contact: Primary Care Provider and [place] Call non-emergency contact if: you have any medication questions, your symptoms worsen and you have a fever Follow-up/Referrals: Xu Amaro DO [Physician] - 04/20/19 1:45 pm Salo Henderson DO [Outside Practitioners] - 04/18/19 11:20 am Diet: Heart Healthy Addtl Attending Provider Instructions: Please review your new medication list and follow instructions carefully as discussed. If you have experienced any head trauma, proceed to the emergency room immediately for evaluation. If you have any signs of bleeding, stop Coumadin and call your physician immediately for advice. Call primary care physician or return to the ER immediately if with recurrence or worsening of symptoms. Follow-up with primary care physician and correctional officer lieutenant as outlined above. The Coumadin clinic will be calling you soon for an appointment for blood workINR level check. Call your Primary Care doctor if any of the following symptoms or problems start or get worse: Shortness of breath or difficulty breathing Wake up at night short of breath Chest pain Cough Swelling of your hands, feet, or legs More fatigued or tired with your normal activity Palpitations - sudden fast heart beats WEIGHT Weigh yourself every morning after using the bathroom. Use the same scale. Wear the same amount of clothing. Write your weight down on a chart. Call your Primary Care doctor if you gain more than 2-3 pounds in 1-2 days. MEDICATIONS Use this discharge instruction sheet for medication instructions. Take your medications at the time your doctor ordered. Do not skip a dose of your medicines. If you miss a dose of medicine, take it as soon as possible, but DO NOT DOUBLE A DOSE. Read your medicine information when you get home. Know all of the side effects of your medicine. If in doubt, ask your pharmacist Call your Primary Care doctor's office if you have any side effects. Be sure all of your doctors know what medicine and herbs you take (including cold, flu, and herbal medicine). Take the following with you to your follow-up doctor appointments: Weight Chart Medication List List of questions Do not drink excessive alcohol, beer or wine. Who to Call and When: Call 911 or go to the Emergency Room if: If at any time you feel your situation is an emergency You have tightness or pain in your chest that does not go away with rest or Nitroglycerin You are very short of breath even with rest . Pending Studies at Discharge: Yes Studies:: Repeat INR level care of Coumadin clinic. Stand-Alone Forms: My [facility] ASSET4, Smoking Cessation Medications and DC Order Prescriptions: New furosemide 40 mg Tablet 40 mg PO DAILY 30 Days Qty: 30 RF: 2 potassium chloride [Klor-Con M20] 20 mEq Tablet,Er Particles/Crystals 20 meq PO QAM 30 Days Qty: 30 RF: 2 lisinopril 10 mg Tablet 10 mg PO DAILY 30 Days Qty: 30 RF: 2 warfarin [Coumadin] 5 mg Tablet 5 mg PO DAILY@1600 30 Days Qty: 30 RF: 2 metoprolol tartrate 25 mg Tablet 25 mg PO BID 30 Days Qty: 60 RF: 2 Continued amoxicillin 500 mg Capsule 0 mg PO UD RF: 0 aspirin 81 mg Tablet,Delayed Release (Dr/Ec) 81 mg PO DAILY RF: 0 tamsulosin 0.4 mg Capsule 0.4 mg PO HS RF: 0 cholecalciferol (vitamin D3) [Vitamin D3] 400 unit Capsule 400 unit PO DAILY RF: 0 Discontinued lisinopril 2.5 mg Tablet 2.5 mg PO DAILY RF: 0 Discharge Orders: Discharge Order (Routine); Ordered 04/16/19 Ordered By: Jose A Barboza/Other Patient Handouts: What to Know When TakingWarfarin, Metoprolol tablets, Lisinopril tablets, Furosemide tablets Admission Data Admit Date/Time: 04/12/19 19:18 Attending Provider: Jose A Milner Admit Provider: Ann Marie Larson Primary Care Provider: PCP,NO Other Providers: Ann Marie Larson ; Xu Amaro ; Josue Jeronimo ; Moris Vidal ; Declan Mendosa ; Ross Bailey ; Thuan Hernandez ; Lindsey Adam ; Marely Manjarrez ; Ken Jaimes Other Interventions: Discharge Summary Assessment (RN) Last Done: 04/16/19 17:43 DC Date/Time DO NOT enter until pt leaves facility: 04/16/19 18:52
[2019-04-16] MEDS ORDERED: WARFARIN SOD 2.5 MG TAB PO ONE (17:00)
[2019-04-16] MEDS: WARFARIN SOD 5 MG TAB PO SCH (17:14)
== END 2019-04-16 18:52 | disposition home or self-care (01) | DRG 308 ==
LOC: ED 17:07 → 2S 19:18 → SUATTDRO 19:18 → 2S 20:28